=== PATIENT | female | born 1975 | race Caucasian/White ===

== ENCOUNTER 2021-11-08 20:31 | Observation (INO) | payer MEDICAID, SELFPAY ==
[2021-11-08 20:54] VITALS: BP 146/93; PULSE 105; RESP 18; TEMP 36.9; O2SAT 97; BMI 48.0
[2021-11-08 23:07] VITALS: BP 136/87; PULSE 90; RESP 18; O2SAT 100
[2021-11-09] VITALS (9 sets, daily range): BP systolic 110–142; BP diastolic 65–85; PULSE 76–90; RESP 13–18; TEMP 36.2–36.8; O2SAT 96–97; BMI 48.0
--- NOTE | 2021-11-09 00:56 | P.HP_ITS ---
Providers/Chief Complaint Chief Complaint: eye problems, head pressure History of Present Illness Fani Serna is a 46 year old female who follows up with [facility] in [place], has diagnosis of drusen around optic disc, mild blurring of disc margins superonasal right eye, left eye blurred disc margin nasal no previous history of glaucoma or cataract, presented to the hospital for worsening of headache. Patient is stating that about 10 days ago she follow-up with her client services specialist as regular follow-up appointment for her optic disc drusen, at that time she was recommended MRI head with and without contrast to rule out intracranial hypertension for her persistent headache. She went to the [facility] emergency department where work-up was done however she had to leave the emergency department because of emergency in the family, MRI could not be completed. Today she is returning to the hospital stating that she wants to get her MRI done, she is complaining of headache 5/10, she describes her headache as achy in nature, this has been going on for a few months, her headache gets worse with straining and coughing, gets better after sleep. She has been on estrogen for about 15 years because of hormonal imbalance after hysterectomy and oophorectom y. She has noticed hearing deficit, burning sensation in her ears, associated with her headache. Today when she was trying to read on her phone she started noticing flickering of light around the left lateral upper quadrant. She is denying nausea, vomiting, asymmetrical pupils, paresthesias or numbness of her extremities. Of note, patient follows up with [facility] She is being admitted for MRI and then lumbar puncture if MRI is negative. Review of Systems Const: Denies: fever(s) or chills Eyes: Reports: change in vision and blurry vision ENMT: Denies: throat pain Card: Denies: chest pain Resp: Denies: dyspnea GI: Denies: abdominal pain : Denies: flank pain Musc: Denies: neck pain Skin/Breast: Reports: rash and lesions Neuro: Denies: headache(s) Psych: Reports: anxiety and depression Goldy/Lymph: Denies: easy bruising All/Imm: Denies: urticaria Medications/Allergies Allergies Allergy/AdvReac Type Severity Reaction Status Date / Time Penicillins Allergy ALGY-Anaphy Verified 11/08/21 23:09 laxis PFSH Acute PFSH: Medical History Cervical intraepithelial neoplasia (DANNY) GERD (gastroesophageal reflux disease) Denisha's thyroiditis Optic disc drusen Psoriasis Rosacea Sciatica Smoker Surgical History History of hysterectomy with oophorectomy Family History Other Diabetes Hypertension Social History Smoking and tobacco status: current every day smoker cigarettes Number of cigarettes per day: >20 Alcohol intake: never Substance/Drug Use: never Housing: House Vitals/I&O/Wt Last Vital Signs Temp 98.5 F 11/08/21 20:54 Pulse 90 11/08/21 23:07 Resp 18 11/08/21 23:07 BP 136/87 11/08/21 23:07 Pulse Ox 100 11/08/21 23:07 Weight last 48 hrs Weight 127.006 kg Physical Exam Narrative: Very pleasant cooperative female Morbidly obese Sitting without any discomfort in her bed S1, S2 No audible stridor or wheezing No active flare of rosacea or psoriasis Abdomen soft distended visceral obesity EOMI, PERRLA Nonfocal neuro exam No focal deficits Not in any active distress A&P Assessment and plan (1) Blurry vision, left eye: Status: Acute (2) Headache: Status: Acute Plan Headache with blurry vision Red flags such as worsening of headache with straining and cough would necessita te MRI brain has History of optic disc edema Diagnosis of cataract or glaucoma Concern for benign intracranial hypertension Will do MRI with and without contrast And if MRI is negative would recommend fluoroscopic lumbar puncture Patient is claustrophobic She is asking for benzodiazepines before her MRI Will do CT scan for now she has no neurological symptoms, pupils are not asymmetrical, no active nausea, vomiting My concern is related to use of estrogen which can cause weight gain, ventricular hypertension, she is also complaining of intermittent hearing deficit, tinnitus, I will also keep M?ni?re's disease in the differentials She might benefit from discontinuation of estrogen, use of acetazolamide if benign IC hypertension is diagnosed Patient was counseled to revisit with her primary care physician regarding long- term use of estrogen Her MRI results can be faxed to [phone], academic support specialist [facility] Outside records: Reviewed, records in the chart Patient takes clindamycin for her rosacea which I would hold for now Full code DVT prophylaxis SCDs She might be able to go home tomorrow after LP if symptoms resolve Discontinued celecoxib which is her home regimen for arthritis because of side effect of this medication I would not recommend continuing celecoxib Patient is an active smoker smokes 1/2 pack/day, nicotine patch Dr. Pelayo is available if needed Attestations Medical Necessity Statement*: Anticipating less than 2 midnights in the hospital will need MRI to rule out intracranial benign hypertension she will also need lumbar puncture Time Spent in Patient Care: 40mins Coding Level of Care Code Acute Maintenance Operator for Aamir Cristina Diagnoses Blurry vision, left eye H53.8 Headache R51.9
--- NOTE | 2021-11-09 01:01 | CTR_ITS ---
PROCEDURE INFORMATION: Exam: CT Head Without Contrast Exam date and time: 11/09/2021 1:27 AM Age: 46 years old Clinical indication: Pain; Visual disturbance; Headache; Additional info: Headache, vision changes TECHNIQUE: Imaging protocol: Computed tomography of the head without contrast. Radiation optimization: All CT scans at this facility use at least one of these dose optimization techniques: automated exposure control; mA and/or kV adjustment per patient size (includes targeted exams where dose is matched to clinical indication); or iterative reconstruction. COMPARISON: No relevant prior studies available. RADIATION DOSE METRICS: Total DLP (mGy-cm): 376.81 FINDINGS: Brain: Normal. No hemorrhage. Unremarkable white matter. No mass effect. Cerebral ventricles: No ventriculomegaly. Paranasal sinuses: Visualized sinuses are unremarkable. No fluid levels. Mastoid air cells: Visualized mastoid air cells are well aerated. Bones/joints: Unremarkable. No acute fracture. Soft tissues: Unremarkable. CT/CT head wo con* [id number] IMPRESSION: No acute intracranial abnormality.
--- NOTE | 2021-11-09 01:03 | ECG_ITS ---
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 Measurements Intervals [place] Rate: 81 P: 49 TX: 181 QRS: -35 QRSD: 133 T: 55 QT: 434 QTc: 505 Interpretive Statements SINUS RHYTHM LEFT AXIS DEVIATION [QRS AXIS < -30] INTRAVENTRICULAR CONDUCTION DELAY [130+ ms QRS DURATION] ANTEROSEPTAL MYOCARDIAL INFARCTION , OF INDETERMINATE AGE [40+ ms Q WAVE IN V1-V4] No previous ECG available for comparison Electronically Signed On 11-09-2021 22:09:15 CDT by Lee Medrano M.D. [id number]
[2021-11-09 01:48] LABS: Basophils # 0.1 10^3/uL (0.0-0.1); Basophils % 0.5 %; Eosinophils # 0.2 10^3/uL (0.0-0.8); Eosinophils % 1.6 %; Hematocrit 41.9 % (37.0-47.0); Hemoglobin 13.7 g/dL (11.5-15.3); Lymphocytes # 3.1 10^3/uL (0.8-4.8); Lymphocytes % 29.7 %; Mean Corpuscular HGB Conc 32.7 g/dL (30.0-36.0); Mean Corpuscular Volume 91.7 fl (81-99); Mean Platelet Volume 9.7 fL (7.4-10.4); Monocytes # 0.9 10^3/uL (0.2-0.9); Monocytes % 8.6 %; Neutrophils # 6.22 10^3/uL (1.8-7.7); Neutrophils % 59.3 %; Nucleated Red Blood Cells % 0 %; Platelet Count 311 10^3/cmm (130-400); Red Blood Count 4.57 10^6/uL (4.1-5.3); Red Cell Distribution Width 13.1 % (12.1-15.1); White Blood Count 10.5 10^3/uL (4.0-10.0)
[2021-11-09 02:13] LABS: Alanine Aminotransferase 19 U/L (0-33); Albumin Level 4.4 g/dL (3.5-5.2); Alkaline Phosphatase 80 IU/L (35-105); Anion Gap 16.2 (5-19); Aspartate Amino Transferase 22 U/L (0-32); Blood Urea Nitrogen 27 mg/dL (6-20); Calcium 8.8 mg/dL (8.5-10.5); Carbon Dioxide 25 mmol/L (22-29); Chloride 101 mmol/L (98-107); Globulin 2.7 g/dL (1.3-4.6); Glomerular Filtration Rate 107.2 mL/min (90-130); Glucose 103 mg/dL (65-115); Magnesium 2.1 mg/dL (1.7-2.3); Osmolality Calculated 291 mOsm/kg (285-295); Potassium 4.2 mmol/L (3.5-5.1); Sodium 138 mmol/L (136-145); Total Bilirubin 0.2 mg/dL (0.15-1.2); Total Protein 7.1 g/dL (6.6-8.7)
[2021-11-09 02:17] LABS: Partial Thromboplastin Time 26.6 SECONDS (23.9-36.7)
[2021-11-09 02:30] LABS: NT Pro B Type Natriuretic Pept 105 pg/mL (0-125)
--- NOTE | 2021-11-09 02:54 | W.ED.EYEPROB ---
HPI - Eye Problem General: Chief complaint: Eye Problems Stated complaint: eye problems, head pressure Time Seen by Provider: 11/08/21 23:01 Source: patient History of Present Illness: 46-year-old female complaining of vision changes and headaches for the past couple of weeks. She was seen at a hospital in [place] on 10/29. She was admitted at that point. She was sent by her dictating machine mechanic, who noted optic disc swelling on her exam. The plan was to MRI her brain and orbits, and if it was normal, to do a lumbar puncture for opening pressure and attempted diagnosis intracranial hypertension. She had a family emergency at that point, and had to come back to [place]. She presents with the same symptoms, headaches, visual changes, some dizziness, and some nausea. Her family notes that she has been a bit more forgetful, has trouble concentrating as well. Onset (ago): day(s) Onset description: gradual Duration: constant Location: both eyes Eye Symptoms: pain and photophobia Place: home Mechanism: none Context: sore throat and history of glaucoma Associated symptoms: Reports headache(s) and nausea; Denies cough, fever(s), neck pain, numbness, rhinorrhea, short of breath, vomiting or weakness Treatments Prior to Arrival: other Review of Systems Const: Denies: fever(s) Eyes: Reports: change in vision, photophobia, eye discomfort and floaters; Denies: eye discharge or eye redness ENMT: Denies: throat pain Card: Denies: chest pain or palpitations GI: Reports: nausea; Denies: vomiting Musc: Denies: neck pain Neuro: Reports: headache(s), dizziness and confusion; Denies: numbness in extremities or weakness in extremities PFSH ED PFSH: Medical History Cervical intraepithelial neoplasia (DANNY) GERD (gastroesophageal reflux disease) Denisha's thyroiditis Optic disc drusen Psoriasis Rosacea Sciatica Smoker Surgical History History of hysterectomy with oophorectomy Family History Other Diabetes Hypertension Social History Smoking and tobacco status: current every day smoker cigarettes Number of cigarettes per day: >20 Alcohol intake: never Substance/Drug Use: never Housing: House Physical Exam Const: COMMON NORMALS: alert GENERAL APPEARANCE: cooperative HENMT: COMMON NORMALS: normocephalic, atraumatic and Normal external nose present HEAD & SCALP: normocephalic and atraumatic FACE & SINUS: normal facial exam and face symmetric NOSE: Normal external nose present and Normal nares present MOUTH: Normal oral and palatal mucosa present Eye: COMMON NORMALS: Equal, round and reactive pupils present and EOMs intact bilaterally PUPIL: Yes Equal, round and reactive pupils present Chest: COMMONS NORMALS: normal inspection of the chest Resp: COMMON NORMALS: normal respiratory effort, No use of accessory muscles and clear to auscultation bilaterally AUSCULTATION: clear to auscultation bilaterally Cardio: COMMON NORMALS: regular rate and regular rhythm RATE: regular rate RHYTHM: regular rhythm GI: COMMON NORMALS: Normal to inspection, nondistended, normoactive bowel sounds present Neuro: [place] COMA SCALE: document GCS findings [place] coma scale eye opening: Spontaneous [place] coma scale verbal response: Orientated [place] coma scale motor response: Obey commands [place] coma scale total score: 15 SENSORIUM/ORIENTATION: Yes alert COORDINATION/BALANCE: [id number] test normal SPEECH: speech normal COORDINATION: [id number]-[id number] test normal Psych: COMMON NORMALS: mental status grossly normal and cooperative Course Consultations: Consultation #1: JAMIN Vital Signs: Vital signs: Vital Signs Temperature 98.5 F 11/08/21 20:54 Pulse Rate 90 11/09/21 02:52 Respiratory Rate 18 11/09/21 02:52 Blood Pressure 142/65 11/09/21 02:52 Pulse Oximetry 96 11/09/21 02:52 MDM - Eye Problem Medical Decision Making Spoke with ophthalmology on-call. The question as to whether to continue this lady's work-up as an inpatient or an outpatient. She will be observed. MRI later in the morning. CT is negative here. If MRI is negative, she may proceed with guided lumbar puncture. CBC is essentially normal. BUN is slightly elevated otherwise BMP is normal. Lab Data : 11/09/21 01:40 11/09/21 01:[address] 11/09/21 01:01 IMPRESSION: No acute intracranial abnormality. Discharge Plan Discharge Patient Disposition: Admitted As Inpatient Admit Provider: Saurabh Elder Clinical Impression: Headache Condition: Stable Coding Level of Care Code ED Odd Job Laborer for Aamir Cristina
--- NOTE | 2021-11-09 03:07 | PC.NURSE ---
ADMIT NOTE Pt received to floor from ER via wheelchair. Alert and oriented. c/o headache at 4/10 on admission. Says feels like she has pressure to top of her head. Has been having headaches worsening for about a week now. Says gets better then comes right back. Also has c/o blurry vision as well as a whooshing sound in her ears, light sensitivity & a blur spot that floats across her left eye Has a history of optic disc drusen. Was seen recently in [place] and [place] and was told she had had a hemorrhage in her right eye that was no longer bleeding and was to have a MRI but family emergency caused it to not get done. Came to the ER tonight to be seen for symptoms and get MRI done. Denies any nausea or dizziness. RN completing admission assessment
[2021-11-09] MEDS: nicotine 21 mg Patch 1 PATCH TRANSDERMA ×2 (03:35→11:08)
[2021-11-09] MEDS: gabapentin 300 mg Capsule PO ×2 (03:35→19:15)
[2021-11-09 05:08] LABS: Estmated Average Glucose 123; Hemoglobin A1C 5.9 % (4.0-6.0)
[2021-11-09 05:15] LABS: Basophils # 0.1 10^3/uL (0.0-0.1); Basophils % 0.6 %; Eosinophils # 0.2 10^3/uL (0.0-0.8); Eosinophils % 2.4 %; Hematocrit 40.4 % (37.0-47.0); Hemoglobin 12.9 g/dL (11.5-15.3); Lymphocytes % 33.7 %; Mean Corpuscular HGB Conc 31.9 g/dL (30.0-36.0); Mean Corpuscular Hemoglobin 30.4 pg (28.0-34.0); Mean Corpuscular Volume 95.3 fl (81-99); Mean Platelet Volume 9.8 fL (7.4-10.4); Monocytes # 0.9 10^3/uL (0.2-0.9); Monocytes % 10.3 %; Neutrophils # 4.71 10^3/uL (1.8-7.7); Neutrophils % 52.7 %; Nucleated Red Blood Cells % 0 %; Platelet Count 276 10^3/cmm (130-400); Red Blood Count 4.24 10^6/uL (4.1-5.3); White Blood Count 8.9 10^3/uL (4.0-10.0)
[2021-11-09 05:42] LABS: Thyroid Stimulating Hormone 2.75 uIU/mL (0.27-4.20)
[2021-11-09 06:28] LABS: Anion Gap 16.9 (5-19); Blood Urea Nitrogen 26 mg/dL (6-20); C Reactive Protein 4.7 mg/L (0.0-4.9); Calcium 8.1 mg/dL (8.5-10.5); Carbon Dioxide 21 mmol/L (22-29); Chloride 103 mmol/L (98-107); Glomerular Filtration Rate 59.4 mL/min (90-130); Glucose 110 mg/dL (65-115); Osmolality Calculated 289 mOsm/kg (285-295); Potassium 3.9 mmol/L (3.5-5.1); Sodium 137 mmol/L (136-145)
[2021-11-09 06:31] LABS: Creatinine Clr Calc Pharmacy 91.8104
[2021-11-09] MEDS: pantoprazole DR 40 mg Tablet PO (07:58)
--- NOTE | 2021-11-09 11:57 | PC.CHAP ---
Pastoral Care Encounter/Spiritual Assessment Type of Contact [] Declined project coordinator rn visit [] Patient/Family/Request visit [] Outpatient visit [] Follow-up visit [] Physician referral [] Code/Alert [x] Routine visit [] Staff referral [] Actively dying [x] Patient sleeping [] Family support [] [] Out of room [] Palliative care [] [] Receiving care in room [] Pre-surgical visit [] Trauma [] Long length of stay [] ICU visit [] Other: Relational/Emotional Strength [] Patient feels connected with others/family/visitors/staff [] Distress [] Loneliness/isolation [] Abandonment Spirituality of Patient [] Person of Elizabeth [] Attends Islam of their Elizabeth [] Believes in Prayer [] Reads Bible or Uatsdin materials [] There are Spiritual issues to be addressed Senior Regulatory Affairs Specialist Interventions [] Prayer [] Active listening [] Non-anxious presence [] Spiritual/emotional support [] Crisis/trauma care [] Spiritual counseling [] Bereavement support [] Provided bereavement packet [] Provided Bible/devotional materials [] Provided toy/stuffed animal, coloring book to patient or family member [] Provided Communion [] Anointing/[place] [] Salvation [] Completed spiritual assessment [] Other: Impact on Illness or Injury [] Angry [] Fearful [] Anxious [] Often cries [] Exhaustion [] Unable to work [] Unable to attend holiness [] Unable to walk/stand [] Unable to read [] Unable to drive [] Unable to eat/drink [] Unable to sleep [] Unable to be with family [] Patient intubated [] Other: Summary Time spent with patient
[2021-11-09 16:44] LABS: Add Urine Culture? Yes; Add Urine Microscopic? YES; Bacteria Urine 4+ /hpf; Bilirubin Urine Neg (Negative); Blood Urine Neg (Negative); Glucose Urine UA Norm (Normal); Ketones Urine Negative (Negative); Leukocyte Esterase Urine Trace (Negative); Nitrate Urine Negative (Negative); Protein Urine Neg (Negative); RBC Urine 0-4 /hpf (0-2); Specific Gravity, Urine 1.025 (1.005-1.030); Squamous Epithelial Cell Urine 0-4 /hpf (0-5); Urine Appearance Clear (CLEAR); Urine Color Yellow (Yellow); Urobilinogen Urine 1 mg/dL (Negative); pH Urine 7 (5-7)
--- NOTE | 2021-11-09 19:21 | PC.NURSE ---
Addendum entered by Vannessa Taylor RN 11/09/21 19:53: Physician states patient is on highest dose of patch and unable to increase frequency. Jennifer zuniga ordered. Original Note: Patient asking to increase frequency of nicotine patch. Attempt to contact Dr. White with no answer. Voicemail left to return call.
--- NOTE | 2021-11-09 20:38 | P.PN_ITS ---
Subjective Subjective: Feels some pressure/headache. Denies any additional vision changes. No numbness or weakness. No nausea or vomiting. Vitals/I&O/Wt Last Vital Signs Temp 97.9 F 11/09/21 16:00 Pulse 84 11/09/21 16:00 Resp 13 11/09/21 16:00 BP 136/85 11/09/21 16:00 Pulse Ox 97 11/09/21 16:00 11/09/21 11/09/21 11/09/21 06:59 14:59 22:59 Intake Total 120 / 120 600 / 600 Balance 120 / 120 600 / 600 Weight last 48 hrs Weight 127.006 kg Weight 127.006 kg Physical Exam Const: COMMON NORMALS: alert GENERAL APPEARANCE: cooperative NUTRITIONAL APPEARANCE: obese ORIENTATION/CONSCIOUSNESS: Yes awake HENMT: COMMON NORMALS: normocephalic, EAC's normal, Normal external nose present and moist oral mucous membranes HEAD & SCALP: normocephalic NOSE: Normal external nose present EXTERNAL AUDITORY CANAL: EAC's normal Neck/C-Spine: COMMON NORMALS: no meningeal signs Chest: CHEST: Yes Symmetrical chest wall rise Resp: COMMON NORMALS: clear to auscultation bilaterally AUSCULTATION: clear to auscultation bilaterally Cardio: COMMON NORMALS: regular rate, regular rhythm and No murmurs present (Cardio) RATE: regular rate RHYTHM: regular rhythm GI: COMMON NORMALS: Normal to inspection, nondistended, normoactive bowel sounds present, Soft to palpation and non-tender PALPATION: Yes Soft to palpation Extremity: COMMON NORMALS: no pedal edema Neuro: COMMON NORMALS: moves all extremities SENSORIUM/ORIENTATION: Yes alert MENINGEAL SIGNS: Yes no meningeal signs SPEECH: speech normal MOTOR EXAM: no tremor noted OTHER: Awake, alert, following commands. No issues with tracking. No dysmetria or ataxia. Psych: COMMON NORMALS: mental status grossly normal Skin: COMMON NORMALS: no wounds RASHES: no rashes Data : 11/09/21 05:00 11/09/21 05:00 A&P Assessment and plan (1) Headache: Pending assessment with MRI, plus possible lumbar puncture. Consider discontinuation of estrogen. Discussed with her discontinuation of celecoxib. Status: Acute (2) Blurry vision, left eye: No vision changes today. Some persistent headache. Status: Acute Plan She takes medications for psoriasis, although does not follow with specialist. She suspects she has psoriatic arthritis. Discussed with her arrange with her primary provider follow-up with rheumatology or dermatology. She denies chronic oral steroid use. Does use topical steroid fairly often. Denies any retinoid use. Patient is an active smoker smokes 1/2 pack/day, nicotine patch Attestations Medical Necessity Statement*: Continue admission for assessment and management of possible secondary or [place] intracranial hypertension. Coding Level of Care Code Acute Roll Slicing Machine Tender for Aamir Cristina Diagnoses Blurry vision, left eye H53.8 Headache R51.9
[2021-11-09] MEDS: nicotine 4 mg lozenge MUCOUS MEM (20:39)
[2021-11-10] VITALS (7 sets, daily range): BP systolic 118–135; BP diastolic 64–79; PULSE 67–100; RESP 16–18; TEMP 36.3–36.6; O2SAT 95–97
--- NOTE | 2021-11-10 03:00 | FL_ITS ---
WS: [id number] LUMBAR PUNCTURE CLINICAL INFORMATION: AFTER MRI RESULTS COMPARISON: None. TECHNIQUE: Informed consent: The procedure and its potential risk and complications were discussed with the ara ent. Verbal and written consent was obtained. Timeout: A timeout was performed to confirm correct patient, procedure, and site. Patient was prepped and draped in the usual sterile fashion. Lidocaine 1% was used for local anesthes ia. Utilizing fluoroscopic guidance, a 3.5 inch 22-gauge spinal needle was advanced into the subarach noid space at L3-L4 via LEFT oblique sublaminar approach. Free flow of CSF was obtained. This was blo od tinged initially but cleared with additional drainage. Opening pressure 33 cm H2o. 12 cc of CSF wa s collected and sent the lab for further analysis. FLUOROSCOPIC TIME: 0min 57.0sec # of spot films: 0 FL/FL guided lumbarpunc dx* [id number] IMPRESSION: 1. Fluoroscopically guided lumbar puncture. No immediate complications 2. Opening pressure 33 cm H2o
--- NOTE | 2021-11-10 06:30 | MR_ITS ---
WS: [id number] MRI HEAD WITHOUT AND WITH CONTRAST WITH ATTENTION TO THE ORBITS. TECHNIQUE: Sagittal T1, T2 axial, T2 axial FLAIR, axial susceptibility weighted imaging, axial diffus ion weighted images, and coronal T2 images were obtained. Pre and post-T1 axial and post T1 coronal i mages. ADC and FSPGR images. High-resolution CLINICAL INFORMATION: Headache, blurry vision, benign intracranial hypertension COMPARISON: CT November 09, 2021 FINDINGS: Some images degraded by motion artifact. No evidence of restricted diffusion to suggest acute ischemia. Ventricular system and basal cisterns are patent. Normal mcrae-white differentiation. Minimal periventricular white matter changes no signif icant parenchymal volume loss. Normal posterior fossa. Normal vascular flow voids at the skull base. No extra-axial fluid collections. Mild mucosal thickening in the paranasal sinuses. No hemosiderin on susceptibly weighted images. Normal optic chiasm.Temporal lobes and hippocampal formations are normal in appearance. Normal cavern ous sinuses and Meckel's cave. Visualized rectus muscles appear normal. No abnormal intracranial enhancement. Normal dural venous si nuses. Partially empty sella with flattening of the pituitary. Somewhat pinched lateral ventricles and front al horns best appreciated on the coronal imaging. Above findings are nonspecific but can be seen with intracranial hypertension in the appropriate clinical setting. Mild prominence of the CSF along the distal optic nerve sheaths MR/MR head orbits wo/w* [id number] IMPRESSION: 1. No evidence of restricted diffusion to suggest acute ischemia. 2. Partially empty sella and pinched appearance lateral ventricles can be seen with idiopathic intracranial hypertension in the appropriate clinical setting. 3. Mild prominence of the CSF along the distal optic nerve sheaths can also be seen with IIH in the appropriate clinical setting. Orbital images are degraded by motion artifact.Recommend correlation for papilledema. 4. Minimal periventricular white matter changes. No significant parenchymal vo lume loss. 5. No hemosiderin on susceptibly weighted images. 6. Normal optic chiasm. 7. No abnormal gadolinium enhancement. Notified Saurabh Elder MD at 11/10/2021 10:35 AM.
[2021-11-10] MEDS: LORazepam 2 mg/mL INJ 1 mL 0.5 MG IVP ×2 (07:16→10:59)
--- NOTE | 2021-11-10 07:16 | PC.SOCIAL ---
Notified Dr Lynn that LP will be delayed until 11am this am pending the MRI is complete at that time. He verbalized understanding and is hopeful the MRI will be done at 8am this morning.
[2021-11-10] MEDS: pantoprazole DR 40 mg Tablet PO (10:06)
[2021-11-10] MEDS: nicotine 21 mg Patch 1 PATCH TRANSDERMA (10:07)
[2021-11-10] MEDS: loratadine 10 mg Tablet PO (10:07)
[2021-11-10] MEDS: fluoxetine 20 mg Capsule PO ×2 (10:07→13:12)
--- NOTE | 2021-11-10 10:44 | PC.NURSE ---
Received verbal order from Dr. Gardner that patient can have 0.5 mg of Ativan before lumbar puncture. Order put in by nurse.
[2021-11-10 14:03] LABS: CSF Mononuclear # 0.001 10^3/uL (50-90); Mononuclear WBC CSF % 50 % (50-90); Polynuclear Cells ,CSF # 0.001 10^3/uL (0-10); Polynuclear WBC CSF % 50 % (0-10); Red Blood Cell CSF 0 10^3/uL (0-0); White Blood Cell CSF 2 /uL (0-5)
[2021-11-10 14:16] LABS: Appearance CSF CLEAR (CLEAR); Color CSF COLORLESS (COLORLESS); Pathology Referral Yes
[2021-11-10 14:25] LABS: Total Protein CSF 31 mg/dL (15-45)
--- NOTE | 2021-11-10 15:29 | PM.DCS ---
Discharge Providers Date of Admission: 11/09/21 01:27 Date of Discharge: November 10, 2021 Attending Provider at Admission: Saurabh Elder MD Attending Provider at Discharge: John Lynn Diagnoses at Discharge Discharge Diagnosis (1) Headache: Status: Acute (2) Blurry vision, left eye: Status: Acute Reason for Visit Reason for Visit: eye problems, head pressure Hospital Course Hospital Course Pleasant 46-year-old lady with history of psoriasis, topical steroids, Denisha thyroiditis, on hormone therapy, suspects also may have psoriatic arthritis, on chronic Celebrex, with morbid obesity, difficulties losing weight, current smoker, other comorbidities was observed in the hospital after presenting with vision changes, some blurring of the vision in the left eye, as per H&P reported right eye superior. Nasal quadrant, as well as left eye. Nasal blurring of the vision. She reports on the she was evaluated by an pulp beater who had found optic disc edema and reported also old hemorrhage in the right eye from what she tells me and with persistent headache her symptoms raised concern for possible antibiotic intracranial hypertension. On presentation here head CT was obtained which was unremarkable. She underwent additional assessment by MRI brain/orbits with the following findings IMPRESSION: 1. No evidence of restricted diffusion to suggest acute ischemia. 2. Partially empty sella and pinched appearance lateral ventricles can be seen with idiopathic intracranial hypertension in the appropriate clinical setting. 3. Mild prominence of the CSF along the distal optic nerve sheaths can also be seen with IIH in the appropriate clinical setting. Orbital images are degraded by motion artifact.Recommend correlation for papilledema. 4. Minimal periventricular white matter changes. No significant parenchymal volume loss. 5. No hemosiderin on susceptibly weighted images. 6. Normal optic chiasm. 7. No abnormal gadolinium enhancement. She additionally underwent lumbar puncture with opening pressure found to be 33 mmHg. As per discussion with her, with vision changes, with diagnosis of ID pathic intracranial hypertension we have contacted also ophthalmology and she is asked to come for appointment within the next 2 weeks for closer evaluation and consideration of whether intervention may be needed. She understands that the condition potentially may risk her losing vision within 4 weeks and so intends to make sure to follow-up. She will also be speaking again with her primary doctor and flight attendant inflight services with regards to repeat attempts to try to lose weight. She has had much difficulty with this in the past she feels due to Denisha thyroiditis but is also being referred to see a grounds maintenance supervisor currently. Please continue to encourage necessary to quit smoking. Incidentally noted 5-10 WBC in urine, trace LE, 0-4 squamous Pelo cells, 4+ bacteria, however, did not have any urinary symptoms to indicate UTI. She is asked to stop Celebrex, not take it on a chronic basis due to associated adverse effect risks. Physical Exam Const: COMMON NORMALS: alert GENERAL APPEARANCE: cooperative NUTRITIONAL APPEARANCE: obese ORIENTATION/CONSCIOUSNESS: Yes awake HENMT: COMMON NORMALS: normocephalic, EAC's normal, Normal external nose present and moist oral mucous membranes HEAD & SCALP: normocephalic NOSE: Normal external nose present EXTERNAL AUDITORY CANAL: EAC's normal Neck/C-Spine: COMMON NORMALS: no meningeal signs Chest: CHEST: Yes Symmetrical chest wall rise Resp: COMMON NORMALS: clear to auscultation bilaterally AUSCULTATION: clear to auscultation bilaterally Cardio: COMMON NORMALS: regular rate, regular rhythm and No murmurs present (Cardio) RATE: regular rate RHYTHM: regular rhythm GI: COMMON NORMALS: Normal to inspection, nondistended, normoactive bowel sounds present, Soft to palpation and non-tender PALPATION: Yes Soft to palpation Extremity: COMMON NORMALS: no pedal edema Neuro: COMMON NORMALS: moves all extremities SENSORIUM/ORIENTATION: Yes alert MENINGEAL SIGNS: Yes no meningeal signs SPEECH: speech normal MOTOR EXAM: no tremor noted OTHER: Awake, alert, following commands. No issues with tracking. No dysmetria or ataxia. Visual gilliam full on basic testing to confrontation. Psych: COMMON NORMALS: mental status grossly normal Skin: COMMON NORMALS: no wounds RASHES: no rashes Discharge Data Studies Completed and Pending Completed Studies During Hospitalization Category Date Time Status CT head wo con* [id number] Urgent Cat Scan 11/09/21 01:01 Completed FL guided lumbarpunc dx* [id number] Routine Exams 11/10/21 03:00 Completed MR head orbits wo/w* [id number] Routine MRI 11/10/21 06:30 Completed Pending at discharge Category Date Time Status Urine Culture Stat Lab 11/09/21 16:06 Received Radiology Impressions Head CT 11/09/21 01:01 IMPRESSION: No acute intracranial abnormality. Lumbar Puncture Fluoroscopy 11/10/21 03:00 IMPRESSION: 1. Fluoroscopically guided lumbar puncture. No immediate complications 2. Opening pressure 33 cm H2o Brain/Orbits MRI 11/10/21 06:30 IMPRESSION: 1. No evidence of restricted diffusion to suggest acute ischemia. 2. Partially empty sella and pinched appearance lateral ventricles can be seen with idiopathic intracranial hypertension in the appropriate clinical setting. 3. Mild prominence of the CSF along the distal optic nerve sheaths can also be seen with IIH in the appropriate clinical setting. Orbital images are degraded by motion artifact.Recommend correlation for papilledema. 4. Minimal periventricular white matter changes. No significant parenchymal volume loss. 5. No hemosiderin on susceptibly weighted images. 6. Normal optic chiasm. 7. No abnormal gadolinium enhancement. Notified Saurabh Elder MD at 11/10/2021 10:35 AM. Laboratory Results WBC 8.9 10^3/uL (4.0-10.0) 11/09/21 05:00 RBC 4.24 10^6/uL (4.1-5.3) 11/09/21 05:00 Hgb 12.9 g/dL (11.5-15.3) 11/09/21 05:00 Hct 40.4 % (37.0-47.0) 11/09/21 05:00 MCV 95.3 fl (81-99) 11/09/21 05:00 MCH 30.4 pg (28.0-34.0) 11/09/21 05:00 MCHC 31.9 g/dL (30.0-36.0) 11/09/21 05:00 RDW 13.0 % (12.1-15.1) 11/09/21 05:00 Plt Count 276 10^3/cmm (130-400) 11/09/21 05:00 MPV 9.8 fL (7.4-10.4) 11/09/21 05:00 Neut % (Auto) 52.7 % 11/09/21 05:00 Lymph % (Auto) 33.7 % 11/09/21 05:00 [place] % (Auto) 10.3 % 11/09/21 05:00 Eos % (Auto) 2.4 % 11/09/21 05:00 Baso % (Auto) 0.6 % 11/09/21 05:00 Neut # (Auto) 4.71 10^3/uL (1.8-7.7) 11/09/21 05:00 Lymph # (Auto) 3.0 10^3/uL (0.8-4.8) 11/09/21 05:00 [place] # (Auto) 0.9 10^3/uL (0.2-0.9) 11/09/21 05:00 Eos # (Auto) 0.2 10^3/uL (0.0-0.8) 11/09/21 05:00 Baso # (Auto) 0.1 10^3/uL (0.0-0.1) 11/09/21 05:00 Nucleated RBC % (auto) 0 % 11/09/21 05:00 Nucleated RBCs # 0.0 /100WBC 11/09/21 05:00 PT 12.50 SECONDS (12.1-14.9) 11/09/21 01:40 INR 0.90 (0.8-1.2) 11/09/21 01:40 APTT 26.6 SECONDS (23.9-36.7) 11/09/21 01:40 Sodium 137 mmol/L (136-145) 11/09/21 05:00 Potassium 3.9 mmol/L (3.5-5.1) 11/09/21 05:00 Chloride 103 mmol/L (98-107) 11/09/21 05:00 Carbon Dioxide 21 mmol/L (22-29) L 11/09/21 05:00 Anion Gap 16.9 (5-19) 11/09/21 05:00 BUN 26 mg/dL (6-20) H 11/09/21 05:00 Creatinine 1.0 mg/dL (0.5-0.9) H 11/09/21 05:00 GFR Calculation 59.4 mL/min (90-130) L 11/09/21 05:00 Glucose 110 mg/dL (65-115) 11/09/21 05:00 Estimat Average Glucose 123 11/09/21 01:40 Hemoglobin A1c 5.9 % (4.0-6.0) 11/09/21 01:40 Calculated Osmolality 289 mOsm/kg (285-295) 11/09/21 05:00 Calcium 8.1 mg/dL (8.5-10.5) L 11/09/21 05:00 Magnesium 2.1 mg/dL (1.7-2.3) 11/09/21 01:40 Total Bilirubin 0.2 mg/dL (0.15-1.2) 11/09/21 01:40 AST 22 U/L (0-32) 11/09/21 01:40 ALT 19 U/L (0-33) 11/09/21 01:40 Alkaline Phosphatase 80 IU/L (35-105) 11/09/21 01:40 C-Reactive Protein 4.7 mg/L (0.0-4.9) 11/09/21 05:00 NT-Pro-B Natriuret Pep 105 pg/mL (0-125) 11/09/21 01:40 Total Protein 7.1 g/dL (6.6-8.7) 11/09/21 01:40 Albumin 4.4 g/dL (3.5-5.2) 11/09/21 01:40 Globulin 2.7 g/dL (1.3-4.6) 11/09/21 01:40 TSH 2.75 uIU/mL (0.27-4.20) 11/09/21 05:00 Urine Color Yellow (Yellow) 11/09/21 16:06 Urine Appearance Clear (CLEAR) 11/09/21 16:06 Urine pH 7 (5-7) 11/09/21 16:06 Ur Specific [place] 1.025 (1.005-1.030) 11/09/21 16:06 Urine Protein Neg (Negative) 11/09/21 16:06 Urine Glucose (UA) Norm (Normal) 11/09/21 16:06 Urine Ketones Negative (Negative) 11/09/21 16:06 Urine Blood Neg (Negative) 11/09/21 16:06 Urine Nitrate Negative (Negative) 11/09/21 16:06 Urine Bilirubin Neg (Negative) 11/09/21 16:06 Urine Urobilinogen 1 mg/dL (Negative) H 11/09/21 16:06 Ur Leukocyte Esterase Trace (Negative) H 11/09/21 16:06 Urine RBC 0-4 /hpf (0-2) H 11/09/21 16:06 Urine WBC 5-10 /hpf (0-5) H 11/09/21 16:06 Ur Squamous Epith Cells 0-4 /hpf (0-5) H 11/09/21 16:06 Amorphous Sediment Not Reportable 11/09/21 16:06 Urine Bacteria 4+ /hpf (NONE) H 11/09/21 16:06 CSF Appearance Clear (CLEAR) 11/10/21 11:20 CSF Color Colorless (COLORLESS) 11/10/21 11:20 CSF WBC 2 /uL (0-5) 11/10/21 11:20 CSF RBC 0 10^3/uL (0-0) 11/10/21 11:20 CSF Mononuclear # Auto 0.001 10^3/uL (50-90) L 11/10/21 11:20 CSF Mononuclear WBCs % 50 % (50-90) 11/10/21 11:20 CSF Polynuclear WBCs # 0.001 10^3/uL (0-10) 11/10/21 11:20 CSF Polynuclear WBCs % 50 % (0-10) H 11/10/21 11:20 CSF Diff Comment Yes 11/10/21 11:20 CSF Total Protein 31 mg/dL (15-45) 11/10/21 11:20 Vitals Last Vital Signs Temp 97.7 F 11/10/21 08:00 Pulse 84 11/10/21 08:00 Resp 18 11/10/21 12:00 BP 123/79 11/10/21 08:00 Pulse Ox 97 11/10/21 08:00 Discharge Plan Discharge Patient Disposition: Home Condition: Stable Prescriptions: New nicotine 21 mg/24 hr Patch 24 Hour 1 patch transdermal DAILY Qty: 30 0RF nicotine (polacrilex) 4 mg Lozenge 4 mg mucous membrane Q4H PRN (Reason: Nicotine Cravings) Qty: 90 3RF acetazolamide 250 mg tablet 250 mg PO BID Qty: 180 0RF Continued atorvastatin 40 mg Tablet 40 mg PO QPM 0RF omeprazole 40 mg Capsule,Delayed Release(Dr/Ec) 40 mg PO DAILY 0RF fluoxetine 20 mg Tablet 20 mg PO BID 0RF Rx Instructions: administer in the morning and at noon/midday Premarin 0.625 mg/gram Cream 0.625 mg VAGINAL EVERY OTHER DAY 0RF Rx Instructions: off 5 days; repeat cycle gabapentin 300 mg Capsule 300 mg PO BEDTIME 0RF montelukast 10 mg Tablet 10 mg PO QPM 0RF loratadine 10 mg Tablet 10 mg PO DAILY 0RF Hair,Skin and Nails 5,000 mcg PO DAILY 0RF [place] 3 540 mg PO DAILY 0RF Vitamin D3 50 mcg (2,000 unit) Capsule 50 mcg PO DAILY 0RF Discontinued celecoxib 200 mg Capsule 200 mg PO BID 0RF norethindrone-ethin estradiol 0.5 mg tablet 0.5 mg PO DAILY 0RF Discharge Orders: Discharge Order (Routine); Ordered 11/10/21 Ordered By: John Lynn Referrals: Your, PCP [Other] - 4-7 days Your, flight attendant inflight services [Other] Naveen Jacobson MD [Physician] - 11/24/21 11:30 am (HAS APPOINTMENT WITH DR ROXANN JACOBSON ) Patient Instructions: Acetazolamide (By mouth), Nicotine (Into the mouth), Nicotine (Absorbed through the skin), Idiopathic Intracranial Hypertension (GEN) Activity Restrictions/Additional Instructions: Please follow-up with ophthalmology regarding diabetic intracranial hypertension. Follow-up and discuss also with your primary provider. Discussed with your primary provider and flight attendant inflight services regarding additional options for continued attempts at weight loss. You are also started on acetazolamide for this condition. Please avoid driving until cleared to do so by the eye doctor. Discontinue celecoxib due to risks associated with medicine. Please stop smoking. Discharge Attestations Time Spent in Discharge Care*: greater than 30 min Quality Metrics Clinical Quality Measures [ No reported AMI, CVA or VTE this stay] Coding Level of Care Code Acute Chg FW DC note Diagnoses Headache R51.9 Blurry vision, left eye H53.8
== END 2021-11-10 16:02 | disposition home or self-care (01) ==
LOC: ER 11-09 01:24 → MEDSURG 11-09 02:18
PROVIDERS: Admitting Provider Internal Medicine; Emergency Provider Emergency Medicine; Visit Provider Internal Medicine
DX: R51.9 Headache, unspecified (principal); H53.8 Other visual disturbances; E66.01 Morbid (severe) obesity due to excess calories; Z68.42 Body mass index [BMI] 45.0-49.9, adult; F17.210 Nicotine dependence, cigarettes, uncomplicated; K21.9 Gastro-esophageal reflux disease without esophagitis
CPT/HCPCS: 36415; 62328; 70450; 70543; 70553; 80048; 80053; 80503; 81001; 83036; 83735; 83880; 84157; 84443; 85025; 85610; 85730; 86140; 87077; 87086; 87186; 89050; 93005; 96374; 99285; A9579; G0378; J2060

== ENCOUNTER 2024-04-20 13:08 | Outpatient (CLI) | payer MEDICAID, SELFPAY ==
--- NOTE | 2024-04-20 13:11 | CT_ITS ---
WS: [id number] LDCT LUNG CANCER SCREENING HISTORY: HX OF TOBACCO USE TECHNIQUE: Axial imaging performed from the apices to 1 cm below the costophrenic angles. Coronal and sagittal reformats are submitted with axial MIP series. All CT scans at [facility] use at least one of these dose optimization techniques: automated exposure control; mA and/or kV adjustment per patient size (includes targeted exams where dose is matched to clinical indication); or iterativ e reconstruction. DLP: 119.61 mGy.cm DIvol: Mean CTDIvol: 2.70 (mGy) COMPARISON: None available. Diagnostic quality: Satisfactory Lungs: Micronodule LEFT upper lobe, image 76 series 4. No additional mass or nodule. No groundglass a ttenuation or endobronchial lesions. Heart: Normal size heart with no pericardial effusion.. Other findings: LEFT adrenal adenoma 2.6 x 1.7 cm. Normal RIGHT adrenal gland. Small hiatal hernia. H ealed rib fracture mid lateral LEFT thorax. CT/CT lung screening [id number] IMPRESSION: LUNG-RADS: 2-Benign Appearance or Behavior FOLLOW UP: 12 Month: Continue annual screening with LDCT OTHER FINDINGS (S MODIFIER): None.
== END 2024-04-20 13:09 | disposition home or self-care (01) ==
LOC: RAD 13:09
PROVIDERS: PCP Family Medicine; Visit Provider Family Medicine
DX: Z12.2 Encounter for screening for malignant neoplasm of respiratory organs (principal); Z87.81 Personal history of (healed) traumatic fracture; E66.01 Morbid (severe) obesity due to excess calories; R91.1 Solitary pulmonary nodule; D35.02 Benign neoplasm of left adrenal gland; K44.9 Diaphragmatic hernia without obstruction or gangrene; Z87.891 Personal history of nicotine dependence
CPT/HCPCS: 71271

== ENCOUNTER 2024-08-15 14:58 | Outpatient (CLI) | payer MEDICAID, SELFPAY ==
--- NOTE | 2024-08-15 15:15 | MR_ITS ---
WS: [id number] MRI BRAIN WITH AND WITHOUT CONTRAST HISTORY: G93.2 - Benign intracranial hypertension COMPARISON: 11/10/2021 TECHNIQUE: Multiplanar imaging performed through the brain with MultiHance 20 ml's IV. No acute infarcts are seen. Hatch-white matter differentiation is well preserved. Minimal periventricu lar white matter changes without volume loss. Similar to the prior study. No interval infarct. No susceptibility artifacts or prior lacunar infarcts. Reidentified is a somewhat narrowed lateral ventricles and frontal horns as seen on the prior study f rom 11/10/2021 without change or progression. No improvement. No increased CSF along the optic nerve s derian. This Slightly empty sella turcica as noted on the prior study. Visualized posterior fossa and brainstem are also normal. Postcontrast images are negative for masses or vascular malformations. Dural venous sinuses are normal. Paranasal sinuses: Well aerated with no significant disease. Mastoid air cells: Normal. Calvarium and scalp: Normal. MR/MR head wo/w con [id number] IMPRESSION: 1. No acute or remote infarct. No progression of periventricular white matter disease. 2. Slightly narrowed lateral ventricles as seen on the prior study can be seen with idiopathic intracranial hypertension. No interval change. 3. Partially empty sella is unchanged. 4. No CSF along the optic nerve sheaths. 5. No intracranial hemorrhage. 6. No mass.
--- NOTE | 2024-08-15 16:00 | MR_ITS ---
WS: [id number] MRI LUMBAR SPINE WITH AND WITHOUT CONTRAST HISTORY: M54.50 - Low back pain, unspecified COMPARISON: None available. TECHNIQUE: Sagittal and axial multisequence imaging is submitted. MultiHance 20 mL. C6-7: Central disc or osteophyte protrusion contacts the cervical cord with deformity and stenosis. S maller central disc protrusion versus osteophyte at C5-6. Small amount of edema within the anterior T 11 and T12 vertebral bodies is likely reactive from degenerative disc disease and spondylosis. L4 anterolisthesis by 3 mm. Disc spaces and vertebral body heights are well-preserved. Conus terminates normally at L1-2 disc level. L1-L2: Mild ligamentum flavum and facet arthritis. There is mild encroachment and narrowing of the RI GHT foramen. L2-L3: Mild annular disc bulging with a shallow RIGHT foraminal disc protrusion and annular fissure. Mild facet and ligamentum flavum arthritis. Mild subarticular recess and foraminal stenosis, RIGHT gr eater than LEFT. L3-L4: Diffuse annular disc bulging with facet and ligamentum flavum hypertrophy. Disc encroaching up on the ventral thecal sac and subarticular recesses. Disc contacts the traversing L4 nerve roots. Mil d bilateral foraminal stenosis, RIGHT greater than LEFT. L4-L5: Diffuse annular disc bulging with moderate to severe ligamentum flavum and facet arthritis. En croachment upon the ventral thecal sac resulting in moderate central, bilateral subarticular recess a nd LEFT foraminal stenosis. Mild RIGHT foraminal stenosis. L5-S1: Mild annular disc bulge. Bilateral facet joint arthritis. Osteophytic ridging and disc bulging and facet arthritis resulting in moderate bilateral foraminal stenosis with contact on the exiting L 5 nerve roots, LEFT greater than RIGHT. No discitis or osteomyelitis. Mild facet joint synovitis at L4-5 and L5-S1 with enhancement. MR/MR lumbar spine wo/w con [id number] IMPRESSION: 1. Grade 1 anterolisthesis of L4 by 3 mm. 2. L4-5: Advanced facet joint arthritis. Moderate central, bilateral subarticu lar recess and LEFT foraminal stenosis, mild RIGHT foraminal stenosis. 3. L5-S1: Moderate bilateral foraminal stenosis with contact on the exiting L5 nerve roots, LEFT greater than RIGHT. 4. L3-4: Disc contacts the traversing L4 nerve roots. Mild bilateral foraminal stenosis, RIGHT greater than LEFT. 5. L2-3: Shallow RIGHT foraminal disc protrusion. Mild subarticular recess and foraminal stenosis, RIGHT greater than LEFT. 6. Focal disc osteophyte protrusions at C5-6 and C6-7 encroaching and deformin g the central cervical canal. Consider follow-up MRI C-spine. 7. Facet joint synovitis at L4-5 and L5-S1. 8. No discitis or osteomyelitis or mass.
[2024-08-15] MEDS: gadobenate dimeglumine 20 mL vial IV (16:29)
== END 2024-08-15 14:59 | disposition home or self-care (01) ==
PROVIDERS: PCP Family Medicine; Visit Provider Psychiatry & Neurology Neurology
DX: G93.2 Benign intracranial hypertension (principal); M47.896 Other spondylosis, lumbar region; M48.061 Spinal stenosis, lumbar region without neurogenic claudication; M48.07 Spinal stenosis, lumbosacral region; M51.26 Other intervertebral disc displacement, lumbar region; M25.78 Osteophyte, vertebrae; M50.222 Other cervical disc displacement at C5-C6 level; M50.223 Other cervical disc displacement at C6-C7 level; M65.88 Other synovitis and tenosynovitis, other site; M51.369 Other intervertebral disc degeneration, lumbar region without mention of lumbar back pain or lower extremity pain; M47.897 Other spondylosis, lumbosacral region
CPT/HCPCS: 70553; 72158

== ENCOUNTER → 2024-08-28 14:33 | Outpatient (BNVA) | payer MEDICAID, SELFPAY | PROVIDERS: PCP Family Medicine; Visit Provider Orthopaedic Surgery | DX: M54.2 Cervicalgia (principal); M54.9 Dorsalgia, unspecified | CPT/HCPCS: 72050; 72110 ==

== ENCOUNTER 2024-09-01 15:09 | Emergency (ER) | payer MEDICAID, SELFPAY ==
[2024-09-01 15:11] VITALS: BP 125/53; O2SAT 98
--- NOTE | 2024-09-01 15:14 | XRR_ITS ---
PROCEDURE INFORMATION: Exam: XR Left Hip Exam date and time: 09/01/2024 3:35 PM Age: 49 years old Clinical indication: Hip pain; Left hip TECHNIQUE: Imaging protocol: Radiologic exam of the left hip. Views: 2 or 3 views hip with pelvis when performed. COMPARISON: CR XR lumbar spine min 4V [id number] 08/28/2024 2:34 PM FINDINGS: Bones/joints: No fracture is seen about the left hip. Hip joint appears maintained. No abnormal soft tissue calcification is seen about the hip joint. A 15 mm rounded lucency with sclerotic margin is seen inferomedial left femoral head, with benign radiographic appearance. This likely represents synovial herniation pit (usually an incidental finding). Soft tissues: No significant soft tissue abnormality. XR/XR hip LT 2-3V wo/w pel* [id number] IMPRESSION: 1. 15 mm rounded lucency with sclerotic margin inferior medial left femoral head, likely representing synovial herniation pit (usually an incidental finding). If pain persists, consider follow-up MRI evaluation. 2. No acute findings otherwise.
--- NOTE | 2024-09-01 15:16 | W.ED.LOWEXIN ---
HPI - Extremity Injury (Lower) General: Chief Complaint: Extremity Problem,Nontraumatic Stated Complaint: left hip pain Time Seen by Provider: 09/01/24 15:10 Source: patient and EMS Mode of arrival: EMS Limitations: no limitations History of Present Illness: 49-year-old female states she has a history of chronic back pain she has been seeing spine surgery for this. She states that she has been using a paddle at work underneath her desk and has been having left hip pain it is worsening. States pains in her hip and shoots down her left leg states today she is not able ambulate due to the severe pain she rates the pain a 9 out of 10 she denies any bowel or bladder incontinence denies any fever Related Data Home Medications ?Medication ?Instructions ?Recorded ?Confirmed Hair,Skin and Nails 5,000 mcg PO DAILY 11/09/21 08/28/24 [place] 3 540 mg PO DAILY 11/09/21 08/28/24 atorvastatin 40 mg tablet 40 mg PO QPM 11/09/21 08/28/24 cholecalciferol (vitamin D3) 50 50 mcg PO DAILY 11/09/21 08/28/24 mcg (2,000 unit) capsule (Vitamin D3) conjugated estrogens 0.625 mg/gram 0.625 mg vaginal EVERY OTHER DAY 11/09/21 08/28/24 vaginal cream (Premarin) loratadine 10 mg tablet 10 mg PO DAILY 11/09/21 08/28/24 montelukast 10 mg tablet 10 mg PO QPM 11/09/21 08/28/24 omeprazole 40 mg capsule,delayed 40 mg PO DAILY 11/09/21 08/28/24 release phentermine 18.75 mg capsule 18.75 mg PO DAILY 11/16/23 08/28/24 clobetasol 0.05 % scalp solution 1 applic topical DAILY 08/08/24 08/28/24 fluoxetine 20 mg tablet 20 mg PO TID 08/08/24 08/28/24 gabapentin 300 mg capsule 600 mg PO BID 08/08/24 08/28/24 glucosamine sulfate 1,000 mg 1,000 mg PO BID 08/08/24 08/28/24 capsule phentermine 37.5 mg capsule 37.5 mg PO DAILY 08/08/24 08/28/24 tizanidine 4 mg tablet 4 mg PO Q6H 08/08/24 08/28/24 Previous Rx's ?Medication ?Instructions ?Recorded acetazolamide 250 mg tablet 250 mg PO BID #180 tabs 11/10/21 nicotine (polacrilex) 4 mg buccal 4 mg mucous membrane Q4H PRN 11/10/21 lozenge Nicotine Cravings #90 ea nicotine 21 mg/24 hr daily 1 patch transdermal DAILY #30 ea 11/10/21 transdermal patch estradiol 10 mcg vaginal insert 10 mcg vaginal DAILY 2 weeks #8 11/16/23 (Imvexxy Maintenance Pack) inserts ospemifene 60 mg tablet (Osphena) 60 mg PO DAILY #30 tabs 11/16/23 methocarbamol 750 mg tablet 750 mg PO Q6H PRN spasms #20 tabs 09/01/24 Allergies Allergy/AdvReac Type Severity Reaction Status Date / Time Penicillins Allergy ALGY-Anaphy Verified 08/08/24 08:27 laxis Review of Systems Const: Denies: fever(s), chills, body aches or change in appetite ENMT: Denies: throat pain or dental pain Card: Denies: chest pain Resp: Denies: dyspnea GI: Denies: abdominal pain, nausea, vomiting or diarrhea Musc: Reports: back pain and extremity pain; Denies: neck pain Skin/Breast: Denies: rash Neuro: Denies: headache(s) PFSH ED PFSH: Medical History Psoriasis Sciatica GERD (gastroesophageal reflux disease) Denisha's thyroiditis Rosacea Smoker Cervical intraepithelial neoplasia (DANNY) Optic disc drusen Surgical History History of hysterectomy with oophorectomy Family History Father Diabetes Heart disease Other Hypertension Denies family history of Colon cancer Ovarian cancer Prostate cancer Brain cancer Hypercholesteremia Uterine cancer Thyroid disease Stroke Social History Smoking and tobacco/nicotine status: unknown if used tobacco/nicotine Physical Exam Const: COMMON NORMALS: no acute distress, patient oriented x3 and healthy appearing HENMT: COMMON NORMALS: normocephalic and atraumatic HEAD & SCALP: normocephalic and atraumatic Eye: COMMON NORMALS: conjunctivae normal CONJUNCTIVA: Yes conjunctivae normal Neck/C-Spine: COMMON NORMALS: full ROM and supple Chest: COMMONS NORMALS: normal inspection of the chest Resp: COMMON NORMALS: normal respiratory effort Cardio: COMMON NORMALS: regular rate, regular rhythm and No murmurs present (Cardio) RATE: regular rate RHYTHM: regular rhythm Extremity: NARRATIVE EXTREMITY EXAM: Tenderness noted to the left hip does have pain with range of motion no deformity no warmth to touch distal pulses sensation intact no saddle anesthesia Neuro: COMMON NORMALS: patient oriented x3, moves all extremities and no focal motor deficits Psych: COMMON NORMALS: mental status grossly normal, Normal thought process present and cooperative THOUGHT PROCESS: Normal thought process present Skin: COMMON NORMALS: no rashes or lesions noted and no wounds GENERAL SKIN EXAM: no rashes or lesions noted Course Vital Signs: Vital signs: Vital Signs Respiratory Rate 17 09/01/24 15:41 Blood Pressure 125/53 09/01/24 15:11 Pulse Oximetry 98 09/01/24 15:41 Oxygen Delivery Me thod Room Air 09/01/24 15:11 MDM - Extremity Injury (Lower) Medical Decision Making Patient presents with left hip pain she also has chronic back pain here for dose of steroids here she is ambulatory here no signs of cord compression x-ray shows no fracture she is stable for discharge she is followed back up with Dr. Domínguez return if worsening Medical Records I reviewed the patient's medical records. Lab Data Radiology Impressions Hip/Pelvis X-Ray 09/01/24 15:14 IMPRESSION: 1. 15 mm rounded lucency with sclerotic margin inferior medial left femoral head, likely representing synovial herniation pit (usually an incidental finding). If pain persists, consider follow-up MRI evaluation. 2. No acute findings otherwise. All radiology interpretation(s) finalized by discharge Discharge Plan Discharge Patient Disposition: Home Clinical Impression: Hip pain, left Condition: Stable Prescriptions: New methocarbamol 750 mg tablet 750 mg PO Q6H PRN (Reason: spasms) Qty: 20 0RF No Action tizanidine 4 mg tablet 4 mg PO Q6H phentermine 37.5 mg capsule 37.5 mg PO DAILY clobetasol 0.05 % solution 1 applic topical DAILY glucosamine sulfate 1,000 mg capsule 1,000 mg PO BID Rx Instructions: administer with meals phentermine 18.75 mg capsule 18.75 mg PO DAILY Rx Instructions: must administer 30 minutes before or 1-2 hours after breakfast Osphena 60 mg tablet 60 mg PO DAILY Qty: 30 3RF Rx Instructions: must administer with food, preferably a high-fat meal Imvexxy Maintenance Pack 10 mcg insert 10 mcg vaginal DAILY 14 Days Qty: 8 6RF Rx Instructions: one vaginally daily x two weeks, then one vaginally two times per week atorvastatin 40 mg Tablet 40 mg PO QPM omeprazole 40 mg Capsule,Delayed Release(Dr/Ec) 40 mg PO DAILY Premarin 0.625 mg/gram Cream 0.625 mg VAGINAL EVERY OTHER DAY Rx Instructions: off 5 days; repeat cycle montelukast 10 mg Tablet 10 mg PO QPM loratadine 10 mg Tablet 10 mg PO DAILY Hair,Skin and Nails 5,000 mcg PO DAILY [place] 3 540 mg PO DAILY Vitamin D3 50 mcg (2,000 unit) Capsule 50 mcg PO DAILY nicotine 21 mg/24 hr Patch 24 Hour 1 patch transdermal DAILY Qty: 30 0RF nicotine (polacrilex) 4 mg Lozenge 4 mg mucous membrane Q4H PRN (Reason: Nicotine Cravings) Qty: 90 3RF acetazolamide 250 mg tablet 250 mg PO BID Qty: 180 0RF gabapentin 300 mg capsule 600 mg PO BID fluoxetine 20 mg tablet 20 mg PO TID Discharge Orders: Discharge ED (Routine); Ordered 09/01/24 Ordered By: Nabila Celestin Referrals: Josh Domínguez DO [Physician] - 4-7 days Discharge Diet: Advance as tolerated Discharge Activity: Resume usual activity Patient Instructions: Hip Pain (ED) Print Language: Azeri Coding Level of Care Code ED Invas Tech for Aamir Cristina
[2024-09-01 15:41] VITALS: RESP 17; O2SAT 98
[2024-09-01] MEDS: morphine 4 mg/mL SDV 1 mL IVP (15:41)
[2024-09-01] MEDS: dexamethasone 10 mg/mL INJ IVP (15:41)
== END 2024-09-01 16:33 | disposition home or self-care (01) ==
PROVIDERS: Emergency Provider Emergency Medicine
DX: M25.552 Pain in left hip (principal)
CPT/HCPCS: 73502; 96374; 96375; 99284; J1100; J2270

== ENCOUNTER 2024-09-12 13:48 | Outpatient (RCR) | payer MEDICAID, SELFPAY | END 2024-09-14 23:59 | disposition home or self-care (01) | LOC: SPT 13:48 | PROVIDERS: PCP Family Medicine; Visit Provider Orthopaedic Surgery | DX: M54.9 Dorsalgia, unspecified (principal); M54.2 Cervicalgia; G89.29 Other chronic pain | CPT/HCPCS: 97110; 97161 ==

== ENCOUNTER → 2024-09-13 15:33 | Outpatient (BNVA) | payer MEDICAID, SELFPAY | PROVIDERS: PCP Family Medicine; Visit Provider Orthopaedic Surgery | DX: M43.16 Spondylolisthesis, lumbar region (principal); M25.552 Pain in left hip | CPT/HCPCS: 72110; 73502 ==

== ENCOUNTER 2024-09-15 06:30 | Outpatient (RCR) | payer MEDICAID, SELFPAY | END 2024-10-15 23:59 | disposition home or self-care (01) | LOC: SPT 06:30 | PROVIDERS: PCP Family Medicine; Visit Provider Orthopaedic Surgery | DX: M54.9 Dorsalgia, unspecified (principal); M54.2 Cervicalgia; G89.29 Other chronic pain | CPT/HCPCS: 97110 ==

== ENCOUNTER 2024-09-17 13:33 | Outpatient (CLI) | payer MEDICAID, SELFPAY ==
--- NOTE | 2024-09-17 13:37 | MR_ITS ---
WS: [id number] MRI CERVICAL SPINE NONCONTRAST TECHNIQUE: Sagittal T1, T2 and STIR imaging. Axial T2, gradient, and fiesta imaging. CLINICAL INFORMATION: Neck PAin COMPARISON: None. FINDINGS: Straightening with slight reversal of the normal cervical lordosis. Disc bulging worse at C3-C4 C4-C5 C5-C6 and C6-C7 C2-C3: Mild facet arthropathy. Spinal canal and foramen are patent. C3-C4: Mild disc bulging with a shallow central protrusion. Mild central canal stenosis. Mild facet arthropathy. Mild LEFT foraminal narrowing. C4-C5: Central disc osteophyte protrusion with slight indentation on the cervical cord. Mild central canal stenosis. Mild LEFT greater than RIGHT foraminal narrowing. Mild facet arthropathy. C5-C6: Central disc osteophyte protrusion with moderate central canal stenosis. Slight indentation and flattening of the cervical cord. Severe LEFT greater than RIGHT bony foraminal narrowing. C6-C7: Disc osteophyte complex with moderate central canal stenosis. Severe RIGHT and moderate LEFT bony foraminal narrowing. Mild facet arthropathy. C7-T1: Normal. Visualized brain stem structures: Normal. Prevertebral soft tissues: Normal. MR/MR cervical spin wo con* [id number] IMPRESSION: 1. Straightening with slight reversal the normal cervical lordosis. 2. Disc osteophyte protrusions with mild central canal stenosis C3-C4 and C4-C 5. 3. Moderate central canal stenosis C5-C6 and C6-C7. 4. Severe bony foraminal stenosis bilateral C5-C6 and RIGHT C6-7. Moderate LEF T C6-7 bony foraminal narrowing.
== END 2024-09-17 13:34 | disposition home or self-care (01) ==
PROVIDERS: PCP Family Medicine; Visit Provider Orthopaedic Surgery
DX: M48.02 Spinal stenosis, cervical region (principal); M25.78 Osteophyte, vertebrae; M50.221 Other cervical disc displacement at C4-C5 level; M50.21 Other cervical disc displacement, high cervical region; M50.31 Other cervical disc degeneration, high cervical region; M50.321 Other cervical disc degeneration at C4-C5 level; M50.322 Other cervical disc degeneration at C5-C6 level; M50.323 Other cervical disc degeneration at C6-C7 level; M47.892 Other spondylosis, cervical region; M50.222 Other cervical disc displacement at C5-C6 level
CPT/HCPCS: 72141

== ENCOUNTER 2024-09-28 15:20 | Outpatient (CLI) | payer MEDICAID, SELFPAY ==
--- NOTE | 2024-09-28 16:00 | MR_ITS ---
WS: [id number] MRI LEFT HIP WITHOUT CONTRAST. COMPARISON: Radiograph 09/13/2024 Multiplanar, multisequence imaging is performed without contrast. Mild narrowing of the LEFT hip joint. No acute fracture or marrow edema. There is no joint effusion. No cysts identified or CAM deformity. No soft tissue mass or destructive mass. There is moderate increased signal over the greater tuberosity involving the tendon of the gluteus medius muscle. This is increased edema within the gluteus medius muscle and tendon. No significant fluid distention of the bursa over the greater trochanter. Urinary bladder is not distended. No free fluid within the visualized pelvis. MR/MR hip LT wo con* [id number] IMPRESSION: 1. No marrow edema or fracture LEFT hip. 2. Mild narrowing of the LEFT hip joint. 3. Increased signal in the gluteus medius muscle and tendon over the greater t rochanter consistent with tendinopathy. Advanced small tear involving the glute us medius tendon is not excluded. There is no full-thickness tear.
== END 2024-09-28 15:21 | disposition home or self-care (01) ==
PROVIDERS: PCP Family Medicine; Visit Provider Orthopaedic Surgery
DX: M25.852 Other specified joint disorders, left hip (principal); R93.7 Abnormal findings on diagnostic imaging of other parts of musculoskeletal system
CPT/HCPCS: 73721

== ENCOUNTER 2024-10-16 05:07 | Outpatient (RCR) | payer MEDICAID, SELFPAY | END 2024-10-26 08:27 | disposition home or self-care (01) | LOC: SPT 05:07 | PROVIDERS: PCP Family Medicine; Visit Provider Orthopaedic Surgery | DX: M54.9 Dorsalgia, unspecified (principal); M54.2 Cervicalgia; G89.29 Other chronic pain | CPT/HCPCS: 97110 ==

== ENCOUNTER 2025-06-15 15:12 | Emergency (ER) | payer MEDICAID, SELFPAY ==
[2025-06-15 15:14] VITALS: BP 114/70; PULSE 78; TEMP 36.5; O2SAT 98
--- OUTSIDE RECORDS SUMMARY | 2025-06-15 15:17 | XMS_ITS | Encounter Summary ---
Author Organization [facility] Address [address] [place] [address] Care Team Providers Care Oil Burner Technician Name Role Phone Unavailable Primary Care Provider Unavailabl e Encounter Details Date Type Department Care Team (Latest Contact Info) Description 04/29/1998 Outpatient Historical [facility] Medicine [place] [address] [phone] Riky Arango MD [address] [phone] Surgical convalescence (Primary Dx) Social History Tobacco Use Types Packs/Day Years Used Date Smoking Tobacco: Never Assessed Comments Unknown Sex and Gender Information Value Date Recorded Sex Assigned at Not on file 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
--- OUTSIDE RECORDS SUMMARY | 2025-06-15 15:17 | XMS_ITS | Encounter Summary ---
Author Organization [facility] Address [address] [place] [address] Care Team Providers Care Dobie Man Name Role Phone Unavailable Primary Care Provider Unavailabl e Encounter Details Date Type Department Care Team (Latest Contact Info) Description 02/09/1999 Outpatient Historical [facility] Medicine [place] 104 [facility] [address] [place] [address] Sascha Recio MD [address] [phone] Tobacco use disorder (Primary Dx); Benign alexis skin trunk Social History Tobacco Use Types Packs/Day Years Used Date Smoking Tobacco: Never Assessed Comments Unknown Sex and Gender Information Value Date Recorded Sex Assigned at Not on file 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
--- OUTSIDE RECORDS SUMMARY | 2025-06-15 15:17 | XMS_ITS | Encounter Summary ---
Author Organization [facility] Address [address] [place] [address] Care Team Providers Care Superintendent Seed Mill Name Role Phone Unavailable Primary Care Provider Unavailabl e Encounter Details Date Type Department Care Team (Latest Contact Info) Description 04/22/1998 Outpatient Historical [facility] Medicine [place] [address] [phone] Riky Arango MD [address] [phone] Benign neoplasm of skin, site unspecified (Primary Dx) Social History Tobacco Use Types Packs/Day Years Used Date Smoking Tobacco: Never Assessed Comments Unknown Sex and Gender Information Value Date Recorded Sex Assigned at Not on file 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
--- OUTSIDE RECORDS SUMMARY | 2025-06-15 15:17 | XMS_ITS | Encounter Summary ---
Author Organization [facility] Address [address] [place] [address] Care Team Providers Care Scale Mechanic Name Role Phone Unavailable Primary Care Provider Unavailabl e Encounter Details Date Type Department Care Team (Latest Contact Info) Description 08/11/2000 Outpatient Historical [facility] Medicine [place] [address] 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
--- OUTSIDE RECORDS SUMMARY | 2025-06-15 15:17 | XMS_ITS | Encounter Summary ---
Author Organization [facility] Address [address] [place] [address] Care Team Providers Care Marine Consultant Name Role Phone Unavailable Primary Care Provider Unavailabl e Encounter Details Date Type Department Care Team (Latest Contact Info) Description 03/13/1999 Outpatient Historical [facility] Medicine [place] 104 [facility] [address] [place] [address] Sascha Recio MD [address] [phone] Urinary tract infection, site not specified (Primary Dx); Anal/rectal abscess Social History Tobacco Use Types Packs/Day Years Used Date Smoking Tobacco: Never Assessed Comments Unknown Sex and Gender Information Value Date Recorded Sex Assigned at Not on file 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
--- OUTSIDE RECORDS SUMMARY | 2025-06-15 15:17 | XMS_ITS | Encounter Summary ---
Author Organization [facility] Address [address] [place] [address] Care Team Providers Care Computer Forensic Specialist Name Role Phone Unavailable Primary Care Provider Unavailabl e Encounter Details Date Type Department Care Team (Latest Contact Info) Description 07/19/2000 Outpatient Historical [facility] Medicine [place] 104 [facility] [address] [place] [address] Jason Vallecillo, NO ADDRESS ON FILE Unspecified otitis media (Primary Dx) Social History Tobacco Use Types Packs/Day Years Used Date Smoking Tobacco: Never Assessed Comments Unknown Sex and Gender Information Value Date Recorded Sex Assigned at Not on file 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
--- OUTSIDE RECORDS SUMMARY | 2025-06-15 15:17 | XMS_ITS | Clinical Summary ---
Author Organization [facility] Address [address] 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 0 Active selenium sulfide (SELSUN) 2.5 % Lotion Apply to affected area daily. 0 Active loratadine (CLARITIN) 10 mg tablet Take 10 mg by mouth daily. 0 Active sodium chloride (OCEAN) 0.65 % Aerosol, [place] Administer 2 Sprays in each nostril PRN for Allergies. 0 Active omega-3 acid ethyl esters (LOVAZA) 1 gram Capsule Take 4 Grams by mouth daily with breakfast. 0 Active triamcinolone acetonide (KENALOG) 0.1 % Cream Apply to affected area daily. 0 Active FLUoxetine (PROzac) 20 mg capsule Take 60 mg by mouth daily. 0 Active atorvastatin (LIPITOR) 40 mg tablet Take 40 mg by mouth daily. Active gabapentin (NEURONTIN) 300 mg capsule 600 mg in AM and 600 mg PM Active montelukast (SINGULAIR) 10 mg tablet Take 10 mg by mouth daily at bedtime. Active omeprazole (PriLOSEC) 40 mg Capsule, Delayed Release(E.C.) Take 40 mg by mouth daily. Active folic acid (FOLVITE) 1 mg tablet Take 1 mg by mouth daily. Active clindamycin phosphate (CLEOCIN) 1 % Solution Apply to affected area 2 times daily. Active clobetasoL (TEMOVATE) 0.05 % Cream Apply to affected area 2 times daily. Active glucosamine HCl/chondroitin mitchell (GLUCOSAMINE-CH ONDROITIN ORAL) Take by mouth. Active multivit with calcium,iron,mi n (WOMEN'S DAILY FORMULA ORAL) Take by mouth. Activ e clobetasoL (TEMOVATE) 0.05 % Solution Apply to affected area daily. Apply to affected area daily. 50 mL 1 4 Active cranberry fruit (Cranberry) 450 mg Tablet Take by mouth. Activ e methocarbamoL (ROBAXIN) 750 mg tablet TAKE 1 TABLET BY MOUTH EVERY 6 HOURS NEEDED FOR SPASMS 5 Active potassium citrate 99 mg Capsule Take 99 mg by mouth daily. Active topiramate (TOPAMAX) 25 mg tablet TAKE 1 TABLET BY MOUTH TWICE DAILY NEEDED FOR NERVE PAIN. 5 Active acetaZOLAMIDE (DIAMOX) 250 mg tablet Take 250 mg by mouth 2 times daily. Active atorvastatin (LIPITOR) 40 mg tablet Take 40 mg by mouth. 5 11/01/19 26 Active calcipotriene (DOVONEX) 0.005 % Cream APPLY A SMALL AMOUNT TO THE AFFECTED AREA TWICE A DAY USE ON THE ELBOWS. WASH HANDS BEFORE AND AFTER USE! 5 12/28/19 26 Active FLUoxetine (PROzac) 40 mg capsule Take 40 mg by mouth daily. 5 11/01/19 26 Active ACETAZOLAMIDE ORAL Take 250 mg by mouth 2 times daily. Active methotrexate (RHEUMATREX) 2.5 mg Tablet Take 10 mg by mouth. 5 Active glucosamine-D3- hyaluronic acid 1,000 mg- 25 mcg-1.65 mg Tablet Take 1,000 mg by mouth 2 times daily. Active Glucosamine-Cho ndroitin Tablet Take 1 Tablet by mouth. Active fluticasone propionate (FLONASE) 50 mcg/spray [place], Suspension nasal inhaler Administer 1 [place] in each nostril daily. 5 10/29/19 Active DOCOSAHEXAENOIC ACID ORAL Take 1,000 mg by mouth 2 times daily. Active DIMETHICONE TOPICAL Apply 0.005 Applications to affected area. Active diazePAM (VALIUM) 5 mg tablet TAKE 1 TABLET BY MOUTH NEEDED FOR ANXIETY . TAKE PRIOR TO PROCEDURE AT PAIN MANAGEMENT Active cyanocobalamin 1,000 mcg Tablet Take 1,000 mcg by mouth daily. Active Cranberry 500 mg Capsule Take 500 mg by mouth 2 times daily. Active Cholecalciferol , Vitamin D3, 50 mcg (2,000 unit) Capsule Take 50 mcg by mouth daily. Active cholecalciferol , vitamin D3, 1,000 unit Take 50 mcg by mouth. Active multivitamin-mi neral supplement (ELDERTONIC) 0.5-0.6-7-0.7 mg Elixir Take 5 mL by mouth daily. Active OMEPRAZOLE ORAL Take 40 mg by mouth daily. Active FLUoxetine (PROzac) 20 mg capsule Take 20 mg by mouth. Active FLUTICASONE FUROATE INHALATION Administer 50 mcg in each nostril daily. Active FOLIC ACID ORAL Take 1,000 mcg by mouth daily. Active GABAPENTIN, BULK, MISC 300 mg by Other route. Active METHOCARBAMOL ORAL Take 750 mg by mouth 2 times daily. Active montelukast sodium (MONTELUKAST, BULK, MISC) Take 10 mg by mouth daily. Active [id number] RROUS FUMARATE ORAL Take by mouth. Activ e gabapentin (NEURONTIN) 300 mg capsule Take 300 mg by mouth 2 times daily. 5 11/01/19 Active methocarbamoL (ROBAXIN) 500 mg tablet Take 500 mg by mouth. Active omeprazole (PriLOSEC) 40 mg Capsule, Delayed Release(E.C.) Take 40 mg by mouth daily before breakfast. 5 11/01/19 Active tirzepatide, weight loss, (Zepbound) 7.5 mg/0.5 mL Pen Injector Inject 0.5 mL (7.5 mg) by subcutaneous injection every 7 days. 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 Rx is given to patient. Thyroid nodule 10/31/2024 Shoulder joint pain 10/31/2024 Intracranial hypertension 09/03/2024 Assessment & Plan (11/14/2024 1:29 PM CDT): Patient is referred by Dr. Hao Damon for possible papilledema. Patient notes that she has a history of IIH and has been on the dose of 250mg Diamox for nearly 3-4 years now. There is NO current papilledema present or found on patient's imaging or on physical examination. OCT Nerve, Nerve photos and HVF 24-2 are ordered, performed and reviewed with patient. Will forward these results to Dr. Bui for further interpretation and treatment of patient based on his findings. MRA was ordered by him and was also performed today. Will see patient yearly or sooner if Dr. Bui requests repeat of testing in a certain increment of time. Patient states her understanding and is agreeable to plan of care. 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 Gastroesophageal reflux disease 10/04/2018 Depressive disorder 05/11/2018 Encounters Date Type Department Care Team Description 06/04/2025 External Device Data [facility] ABSTRACTION Provider, Abstract 05/22/2025 Patient Outreach [address] [phone] [facility] 05/21/2025 External Device Data [facility] ABSTRACTION Provider, Abstract 05/15/2025 External Device Data [facility] ABSTRACTION Provider, Abstract 05/14/2025 External Device Data [facility] ABSTRACTION Provider, Abstract 05/08/2025 External Device Data [facility] ABSTRACTION Provider, Abstract 04/30/2025 External Device Data [facility] ABSTRACTION Provider, Abstract 04/30/2025 External Device Data [facility] ABSTRACTION Provider, Abstract 04/24/2025 Results Follow-Up [address] [phone] Bertha Alicea MD VITAMIN D 25 HYDROXY, CBC WITH DIFFERENTIAL, COMPREHENSIVE METABOLIC PANEL, MAGNESIUM LEVEL 04/22/2025 2:00 PM CDT Office Visit [address] [phone] Bertha Alicea MD Constipation, unspecified constipation type (Primary Dx); Screening mammogram, encounter for; Other fatigue; Prediabetes; Obesity (BMI 35.0-39.9 without comorbidity) 04/22/2025 Patient Outreach [address] [phone] [facility] 04/08/2025 Patient Outreach [address] [address] [facility] 03/19/2025 External Device Data [facility] ABSTRACTION Provider, Abstract 03/19/2025 External Device Data [facility] ABSTRACTION Provider, Abstract 03/19/2025 External Device Data [facility] ABSTRACTION Provider, Abstract 03/15/2025 1:30 PM CDT Office Visit [facility] [address] [place] [address] Hao Damon MD Papilledema (Primary Dx) from Last 3 Months Family History Medical History Relation Name Comments Cancer Father Gerry Ames Materal gra ndmother and grandfather, paternal grandfather Diabetes Father Gerry Ames Paternal gr andmother ( both were pre-diabetic) Lung Cancer Father Gerry Ames Lung Cancer Maternal Grandfather Skin Cancer Maternal Grandmother Throat Cancer Maternal Grandmother Liver Cancer Paternal Grandfather Prostate Cancer Paternal Grandfather Heart Disease Paternal Grandmother Mauricio Ames Mental illness Paternal Grandmother Mauricio Ames Stroke Paternal Grandmother Mauricio Ames Thyroid Disease Paternal Grandmother Mauricio Ames Relation Name Status Comments Father Gerry Ames Maternal Grandfather Maternal Grandmother Paternal Grandfather Paternal Grandmother Mauricio Ames Alive Social History Tobacco Use Types Packs/Day Years Used Date Smoking Tobacco: Every Day Cigarettes Smokeless Tobacco: Never Tobacco Cessation:Ready to Q uit: No; Counseling Given: Yes Alcohol Use Standard Drinks/Week Comments Yes 0 (1 standard drink = 0.6 oz pur e alcohol) Feeling Safe Answer Date Recorded Are you in a relationship wi th someone who hurts you emotionally and/or physically? 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 Gender Identity Not on file Sexual Orientation Not on file Last Filed Vital Signs Vital Sign Reading Time Taken Comments Blood Pressure 108/69 04/22/2025 2:14 PM CDT Pulse 79 04/22/2025 2:14 PM CDT Temperature 36.2 C (97.1 F) 04/22/2025 2:14 PM CDT Respiratory Rate 17 04/22/2025 2:14 PM CDT Oxygen Saturation 99% 04/22/2025 2:14 PM CDT Inhaled Oxygen Concentration - - Weight 88.6 kg (195 lb 6.4 oz) 04/22/2025 2:14 P M CDT Height 162.6 cm (5' 4 ) 04/22/2025 2:14 PM CDT Body Mass Index 33.54 04/22/2025 2:14 PM CDT Plan of Treatment Upcoming Encounters Date Type Department Care Team (Late st Contact Info) Description 07/22/2025 2:00 PM BILINGUAL RESEARCH INTERVIEWER Office Visit [address] [phone] Bertha Alicea MD [address] [address] 01/21/2026 2:00 PM CDT Office Visit [facility] [address] [place] [phone] Hao Damon MD [address] [place] [address] Health Maintenance Due Date Last Done Comments DTAP/TDAP/TD VACCINES (1 - Tdap) 1993 HEPATITIS B VACCINES (1 of 3 - 19+ 3-dose series) 1993 COLORECTAL SCREENING 2019 FIT/FOBT Q 1 year 2019 Flex Sig/CT Colonography Q 5 years 2019 ZOSTER VACCINE (1 of 2) 02/17/2024 INFLUENZA VACCINE (#1) 2025 BREAST CANCER SCREENING 03/05/2025 03/05/20 24, 03/05/2024, 03/05/2024, Additional history exists Preventative Visit-Managed Medicaid 04/22/2026 Postponed from 1993 (Therapeutic Plan Prohibits) Colorectal Cancer Screening 10/13/2026 FIT-DNA Q 3 years 10/13/2026 10/14/2023 Pre-Diabetes and Diabetes Screening 01/08/2028 01/07/2025, 02/20/2024 Procedures Procedure Name Priority Date/Time Associated Diagnosis Comments MAGNESIUM LEVEL Routine 04/22/2025 3:19 PM CDT Constipation, unspecified constipation type COMPREHENSIVE METABOLIC PANEL Routine 04/22/2025 3:19 PM CDT Other fatigue CBC WITH DIFFERENTIAL Routine 04/22/2025 3:19 PM CDT Other fatigue VITAMIN D 25 HYDROXY Routine 04/22/2025 3:19 PM CDT Constipation, unspecified constipation type Other fatigue HEMOGLOBIN A1C Routine 01/07/2025 4:13 PM CDT Prediabetes Obesity (BMI 35.0-39.9 without comorbidity) COLON CANCER SCREEN, STOOL DNA Routine 10/14/2023 5:32 PM CDT Encounter for colorectal cancer screening from Last 3 Months or Most Recently Relevant to Health Maintenance Results * CBC WITH DIFFERENTIAL (04/22/2025 3:19 PM CDT) WBC 6.1 3.8 - 10.8 Thousand/u L [facility] RBC 4.30 3.80 - 5.10 Million/uL [facility] HEMOGLOBIN 13.8 11.7 - 15.5 g/dL [facility] HEMATOCRIT 42.5 35.0 - 45.0 % [facility] MCV 98.8 80.0 - 100.0 fL [facility] MCH 32.1 27.0 - 33.0 pg [facility] MCHC 32.5 32.0 - 36.0 g/dL [facility] Comment: For adults, a slight decrease in the calculated MCHC value (in the range of 30 to 32 g/dL) is most likely not clinically significant; however, it should be interpreted with caution in correlation with other red cell parameters and the patient's clinical condition. RDW 12.9 11.0 - 15.0 % [facility] PLATELETS 304 140 - 400 Thousand/u L [facility] MPV 10.0 7.5 - 12.5 fL [facility] NEUTROPHIL ABSOLUTE 3,623 1,500 - 7,800 cells/uL [facility] LYMPHOCYTE ABSOLUTE 1,824 850 - 3,900 cells/uL [facility] MONOCYTE ABSOLUTE 482 200 - 950 cells/uL [facility] EOSINOPHIL ABSOLUTE 128 15 - 500 cells/uL [facility] BASOPHILS ABSOLUTE 43 0 - 200 cells/uL [facility] NEUTROPHIL 59.4 % [facility] LYMPHOCYTES 29.9 % [facility] MONOCYTE 7.9 % [facility] EOSINOPHILS 2.1 % [facility] BASOPHILS 0.7 % [facility] Comment: Test Performed at: [facility] [address] [address] Yolanda Rodarte MD Blood 04/22/2025 3:19 PM CDT 04/23/2025 3:55 AM CDT Bertha Alicea MD HEMATOLOGY ORDERABLES Final Result Performing Organization Address [facility] Co de Phone Number [facility] [phone] [facility] [address] [facility] [place] [address] * VITAMIN D 25 HYDROXY (04/22/2025 3:19 PM CDT) VITAMIN D, 25 OH, TOTAL 43 30 - 100 ng/mL [facility] Comment: Vitamin D Status 25-OH Vitamin D: Deficiency: <20 ng/mL Insufficiency: 20 - 29 ng/mL Optimal: > or = 30 ng/mL For 25-OH Vitamin D testing on patients on D2-supplementation and patients for whom quantitation of D2 and D3 fractions is required, the Quest[facility]ure[facility](TM) 25-OH VIT D, (D2,D3), LC/MS/MS is recommended: order code 70249 (patients >2yrs). See Note 1 Note 1 For additional information, please refer to http://education.[employer]/faq/MYF736 (This link is being provided for informational/ educational purposes only.) Test Performed at: [facility] [address] [facility] [place] [address] Yolanda Rodarte MD Blood 04/22/2025 3:19 PM CDT 04/23/2025 3:55 AM CDT us Bertha Alicea MD CHEMISTRY ORDERABLES Final Result Performing Organization Address [facility]/ZIP Co de Phone Number [facility] [phone] [facility] [place] [address] [facility] [place] [address] * MAGNESIUM LEVEL (04/22/2025 3:19 PM CDT) MAGNESIUM 1.9 1.5 - 2.5 mg/dL [facility] Comment: Test Performed at: [facility] [address] [facility] [place] [address] Yolanda Rodarte MD Blood 04/22/2025 3:19 PM CDT 04/23/2025 3:55 AM CDT us Bertha Alicea MD CHEMISTRY ORDERABLES Final Result [facility] [phone] [facility] [address] [place] [address] * (ABNORMAL) COMPREHENSIVE METABOLIC PANEL (04/22/2025 3:19 PM CDT) GLUCOSE 76 65 - 99 mg/dL [facility] Comment: Fasting reference interval BUN 18 7 - 25 mg/dL [facility] CREATININE 0.76 0.50 - 1.03 mg/dL [facility] GFR 95 > OR = 60 mL/min/1. 73m2 [facility] BUN/CREAT RATIO SEE NOTE: 6 - 22 (calc) [facility] Comment: Not Reported: BUN and Creatinine are within reference range. SODIUM 140 135 - 146 mmol/L [facility] POTASSIUM 4.0 3.5 - 5.3 mmol/L [facility] CHLORIDE 111(H) 98 - 110 mmol/L [facility] CO2 22 20 - 32 mmol/L [facility] CALCIUM 9.4 8.6 - 10.4 mg/dL [facility] TOTAL PROTEIN 5.9(L) 6.1 - 8.1 g/dL [facility] ALBUMIN 4.0 3.6 - 5.1 g/dL [facility] GLOBULIN 1.9 1.9 - 3.7 g/dL (calc) [facility] ALBUMIN/GLOBULIN RATIO 2.1 1.0 - 2.5 (calc) [facility] BILIRUBIN TOTAL 0.2 0.2 - 1.2 mg/dL [facility] ALKALINE PHOSPHATASE 64 37 - 153 U/L [facility] AST 13 10 - 35 U/L [facility] ALT 12 6 - 29 U/L [facility] Comment: Test Performed at: [facility] [address] [address] [address] Yolanda Rodarte MD Blood 04/22/2025 3:19 PM CDT 04/23/2025 3:55 AM CDT Bertha Alicea MD CHEMISTRY ORDERABLES Final Result Performing Organization Address [facility]/ZIP Co de Phone Number [facility] [phone] [facility] [address] [place] [address] * HEMOGLOBIN A1C (01/07/2025 4:13 PM CDT) HEMOGLOBIN A1C 5.5 <5.7 % [facility] Comment: For the purpose of screening for the presence of diabetes: <5.7% Consistent with the absence of diabetes 5.7-6.4% Consistent with increased risk for diabetes (prediabetes) > or =6.5% Consistent with diabetes This assay result is consistent with a decreased risk of diabetes. Currently, no consensus exists regarding use of hemoglobin A1c for diagnosis of diabetes in children. According to [place] Diabetes Association (ADA) guidelines, hemoglobin A1c <7.0% represents optimal control in non- diabetic patients. Different metrics may apply to specific patient populations. Standards of Medical Care in Diabetes(ADA). ESTIMATED AVERAGE GLUCOSE (MG/DL) 111 mg/dL [facility] ESTIMATED AVERAGE GLUCOSE (MMOL/L) 6.2 mmol/L [facility] Comment: Test Performed at: [facility] [address], [place] [address] Yolanda Rodarte MD Blood 01/07/2025 4:13 PM CDT 01/09/2025 2:44 AM CDT us Bertha Alicea MD CHEMISTRY ORDERABLES Final Result Performing Organization Address City/[facility]/ZIP Co de Phone Number [facility] [phone] [facility] [address] [place] [address] * COLON CANCER SCREEN, STOOL DNA (10/14/2023 5:32 PM CDT) COLOGUARD RESULT Negative Negative [facility] Comment: NEGATIVE TEST RESULT. A negative Cologuard result indicates a low likelihood that a colorectal cancer (CRC) or advanced adenoma (adenomatous polyps with more advanced pre-malignant features) is present. The chance that a person with a negative Cologuard test has a colorectal cancer is less than 1 in 1500 (negative predictive value >99.9%) or has an advanced adenoma is less than 5.3% (negative predictive value 94.7%). These data are based on a prospective cross-sectional study of 10,000 individuals at average risk for colorectal cancer who were screened with both Cologuard and colonoscopy. (Kinga Contreras al, N Engl J Med 2014;370(14):6120-4697) The normal value (reference range) for this assay is negative. COLOGUARD RE-SCREENING RECOMMENDATION: Periodic colorectal cancer screening is an important part of preventive healthcare for asymptomatic individuals at average risk for colorectal cancer. Following a negative Cologuard result, the [place] Cancer Society and U.S. Multi-Society Task Force screening guidelines recommend a Cologuard re-screening interval of 3 years. References: [place] Cancer Society Guideline for Colorectal Cancer Screening: https://www.cancer.org/cancer/kjwuf-vzsxyb-fdjnca/mrdapqajh-hifmkvcdf-ziyqmtf/ac s-rec ommendations.html.; Boogie DK, Yousif RAMIREZ, Alexia CornellK, Colorectal Cancer Screening: Recommendations for Physicians and Patients from the U.S. Multi-Society Task Force on Colorectal Cancer Screening , Am J Gastroenterology 2017; 112:7760-7602. TEST DESCRIPTION: Composite algorithmic analysis of stool DNA-biomarkers with hemoglobin immunoassay. Quantitative values of individual biomarkers are not reportable and are not associated with individual biomarker result reference ranges. Cologuard is intended for colorectal cancer screening of adults of either sex, 45 years or older, who are at average-risk for colorectal cancer (CRC). Cologuard has been approved for use by the U.S. FDA. The performance of Cologuard was established in a cross sectional study of average-risk adults aged 50-84. Cologuard performance in patients ages 45 to 49 years was estimated by sub-group analysis of near-age groups. Colonoscopies performed for a positive result may find as the most clinically significant lesion: colorectal cancer [4.0%], advanced adenoma (including sessile serrated polyps greater than or equal to 1cm diameter) [20%] or non- advanced adenoma [31%]; or no colorectal neoplasia [45%]. These estimates are derived from a prospective cross-sectional screening study of 10,000 individuals at average risk for colorectal cancer who were screened with both Cologuard and colonoscopy. (Kinga Osorio et al, N Engl J Med 2014;370(14):9728-9417.) Cologuard may produce a false negative or false positive result (no colorectal cancer or precancerous polyp present at colonoscopy follow up). A negative Cologuard test result does not guarantee the absence of CRC or advanced adenoma (pre-cancer). The current Cologuard screening interval is every 3 years. ([place] Cancer Society and U.S. Multi-Society Task Force). Cologuard performance data in a 10,000 patient pivotal study using colonoscopy as the reference method can be accessed at the following location: www.[employer]/results. Additional description of the Cologuard test process, warnings and precautions can be found at www.[employer].com. Stool STOOL SPECIMEN / Unknown 10/14/2023 5:32 PM CDT 10/15/2023 4:00 PM CDT us Bertha Alicea MD BODY FLUIDS AND STOOLS [employer] CLIA # [id number] [address] , [address] [place] [address] from Last 3 Months or Most Recently Relevant to Health Maintenance [place] [address] [place] [id number] [employer] Medicaid Care Teams Steel Analyst Relationship Specialty Start Date End Date Bertha Alicea MD [address] [phone] PCP - General Family Practice 09/19/23
--- OUTSIDE RECORDS SUMMARY | 2025-06-15 15:17 | XMS_ITS | Clinical Summary ---
Author Organization [facility] Address [address] [place] [address] Phone Care Team Providers Care Poultry Slaughterer Name Role Phone Unavailable Primary Care Provider Unavailabl e Allergies Active Allergy Reactions Criticality Noted Date Comments Penicillins Swelling Low 04/27/2020 Medications celecoxib (CeleBREX) 200 mg capsule Take 200 mg by mouth 2 times daily. Active omega-3 acid ethyl esters (LOVAZA) 1 gram Capsule Take 4 Grams by mouth daily with breakfast. Active ergocalciferol, vitamin D2, (VITAMIN D ORAL) Take 1 Tablet by mouth daily. Active conjugated estrogens (PREMARIN) 0.625 mg/gram vaginal cream Insert vaginally daily at bedtime. Active selenium sulfide (SELSUN) 2.5 % Lotion Apply to affected area daily. Active sodium chloride (OCEAN) 0.65 % Aerosol, Cameron Administer 2 Sprays in each nostril PRN for Allergies. Active Calvert Tar 2 % Ointment Apply to affected area daily. Active FLUoxetine (PROzac) 20 mg capsule Take 20 mg by mouth daily. Active fluticasone propionate (FLONASE) 50 mcg/spray Cameron, Suspension nasal inhaler Administer 2 Sprays in each nostril daily. Active loratadine (CLARITIN) 10 mg tablet Take 10 mg by mouth daily. Active omeprazole (PriLOSEC) 20 mg Capsule, Delayed Release(E.C.) Take 20 mg by mouth daily. Active norethindrone-et hinyl estradiol 0.5-2.5 mg-mcg tablet Take 1 Tablet by mouth daily. Active triamcinolone acetonide (KENALOG) 0.1 % Cream Apply to affected area daily. Active albuterol HFA 90 mcg inhaler Take 2 Puffs by inhalation every 6 hours as needed for Wheezing or Shortness of Breath. 8.5 Gram 0 Active promethazine-cod eine (PHENERGAN WITH CODEINE) 6.25-10 mg/5 mL solutionIndicati ons:Chronic bronchitis, unspecified chronic bronchitis type (CMS/HCC) Take 5 mL by mouth every 4 hours as needed for Congestion. 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 Gender Identity Not on file Sexual Orientation Not on file Last Filed Vital Signs Vital Sign Reading Time Taken Comments Blood Pressure 103/77 04/27/2020 3:56 PM CDT Pulse 79 04/27/2020 2:35 PM CDT Temperature 35.7 C (96.3 F) 04/27/2020 3:56 PM CDT Respiratory Rate 20 04/27/2020 3:56 PM CDT Oxygen Saturation 98% 04/27/2020 3:56 PM CDT Inhaled Oxygen Concentration - - Weight 111.9 kg (246 lb 9.6 oz) 04/27/2020 2:35 PM CDT Height 162.6 cm (5' 4 ) 04/27/2020 2:35 PM CDT Body Mass Index 42.33 04/27/2020 2:35 PM CDT Plan of Treatment Health Maintenance Due Date Last Done Comments DTAP/TDAP/TD VACCINES (1 - Tdap) 1993 HEPATITIS B VACCINES (1 of 3 - 19+ 3-dose series) 08/1992 HPV/Cotest (21-29) 1995 CERVICAL CANCER SCREENING 02/17/2004 HPV/Cotest (30-65) 02/17/2004 PAP SMEAR 02/17/2004 BREAST CANCER SCREENING 2014 COLORECTAL SCREENING 2019 Colorectal Cancer Screening 2019 FIT-DNA Q 3 years 2019 FIT/FOBT Q 1 year 2019 Flex Sig/CT Colonography Q 5 years 2019 ZOSTER VACCINE (1 of 2) 02/17/2024 INFLUENZA VACCINE (#1) 2025
--- NOTE | 2025-06-15 15:25 | ECG_ITS ---
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 Measurements Intervals Josephine Rate: 64 P: 59 SC: 168 QRS: -21 QRSD: 140 T: 90 QT: 445 QTc: 462 Interpretive Statements SINUS RHYTHM LEFT BUNDLE BRANCH BLOCK [120+ ms QRS DURATION, 80+ ms Q/S IN V1/V2, 85+ ms R IN I/aVL/V5/V6] Compared to ECG 11/09/2021 01:36:58 NO SIGNIFICANT CHANGE Electronically Signed On 06-15-2025 17:00:35 MORTGAGE BROKER by Josafat Oviedo M.D. [id number]
--- NOTE | 2025-06-15 15:33 | W.ED.DIZZY ---
HPI - Dizziness General: Chief Complaint: Dizziness Stated Complaint: DIZZY Time Seen by Provider: 06/15/25 15:13 History of Present Illness: HPI Narrative: Patient is a pleasant 50-year-old female that has history of intracranial hypertension, on acetazolamide, that presents to the emergency room due to dizziness, nausea, vomiting, worse with movement, that started approximately 10 AM. Yesterday, patient noted a flare of her left ocular pain and posterior left occipital pain. This was mild compared to previous issues. She would rate this at a 1. This was transient. Patient did not have any fevers or recent illness. Last administered medications: Was on , 2 days ago. Patient stated sometimes I am stupid and do not take it. She also relates that over the last few months, when she squats, or bends over, she has association of dizziness. She had nausea without emesis today. Patient was brought in by EMS, IV started, Zofran given. Associated symptoms: Denies change in hearing, chest pain, headache(s) (transient posterior left), nausea, palpitations, syncope or tinnitus Associated neuro symptoms: Deny confusion or numbness in extremities Related Data Home Medications ?Medication ?Instructions ?Recorded ?Confirmed Hair,Skin and Nails 5,000 mcg PO DAILY 11/09/21 04/11/25 Hoagland 3 540 mg PO DAILY 11/09/21 04/11/25 atorvastatin 40 mg tablet 40 mg PO QPM 11/09/21 04/11/25 cholecalciferol (vitamin D3) 50 50 mcg PO DAILY 11/09/21 04/11/25 mcg (2,000 unit) capsule (Vitamin D3) conjugated estrogens 0.625 mg/gram 0.625 mg vaginal EVERY OTHER DAY 11/09/21 04/11/25 vaginal cream (Premarin) loratadine 10 mg tablet 10 mg PO DAILY 11/09/21 04/11/25 montelukast 10 mg tablet 10 mg PO QPM 11/09/21 04/11/25 omeprazole 40 mg capsule,delayed 40 mg PO DAILY 11/09/21 04/11/25 release phentermine 18.75 mg capsule 18.75 mg PO DAILY 11/16/23 04/11/25 clobetasol 0.05 % scalp solution 1 applic topical DAILY 08/08/24 04/11/25 fluoxetine 20 mg tablet 20 mg PO TID 08/08/24 04/11/25 glucosamine sulfate 1,000 mg 1,000 mg PO BID 08/08/24 04/11/25 capsule phentermine 37.5 mg capsule 37.5 mg PO DAILY 08/08/24 04/11/25 methotrexate sodium 2.5 mg tablet 2.5 mg PO DAILY 10/23/24 04/11/25 tirzepatide (weight loss) 2.5 10 mg SUBCUT 01/08/25 04/11/25 mg/0.5 mL subcutaneous pen injector (Zepbound) Previous Rx's ?Medication ?Instructions ?Recorded acetazolamide 250 mg tablet 250 mg PO BID #180 tabs 11/10/21 nicotine (polacrilex) 4 mg buccal 4 mg mucous membrane Q4H PRN 11/10/21 lozenge Nicotine Cravings #90 ea nicotine 21 mg/24 hr daily 1 patch transdermal DAILY #30 ea 11/10/21 transdermal patch estradiol 10 mcg vaginal insert 10 mcg vaginal DAILY 2 weeks #8 11/16/23 (Imvexxy Maintenance Pack) inserts ospemifene 60 mg tablet (Osphena) 60 mg PO DAILY #30 tabs 11/16/23 diazepam 5 mg tablet (Valium) 5 mg PO ONCE PRN anxiety #1 tab 03/19/25 methocarbamol 750 mg tablet 1,500 mg (2 x 750 mg) PO BID PRN 04/11/25 spasms #60 tabs topiramate 25 mg tablet (Topamax) 25 mg PO BID PRN nerve pain #60 04/11/25 tabs ondansetron 4 mg disintegrating 4 mg PO Q8H PRN nausea and 06/15/25 tablet vomiting 4 days #14 tabs Allergies Allergy/AdvReac Type Severity Reaction Status Date / Time Penicillins Allergy ALGY-Anaphy Verified 04/11/25 13:31 laxis Review of Systems General: Reports: 10 or more systems reviewed and unremarkable except in HPI and below Const: Denies: fever(s), change in weight or fatigue Eyes: Denies: change in vision, blurry vision, blind spots, photophobia, eye discomfort (transient, yesterday) or seeing flashes ENMT: Denies: odynophagia, hoarseness, change in hearing, tinnitus or sinus pain Card: Denies: chest pain, palpitations or syncope Resp: Denies: dyspnea, non-productive cough, wheezing or hemoptysis GI: Denies: abdominal pain, nausea, heartburn, diarrhea, constipation or hematochezia : Denies: urinary frequency or urinary incontinence Musc: Reports: neck pain Skin/Breast: Denies: rash, new lesions or breast mass Neuro: Reports: lack of coordination, dizziness and vertigo; Denies: headache(s) (transient posterior left), numbness in extremities, weakness in extremities, sensory changes, difficulty walking, frequent falls, confusion, Slurred speech present, difficulty communicating thoughts, seizure-like activity, involuntary movements or other (Sleep Apnea) Psych: Denies: depression, irritability, memory loss or difficulty concentrating Endo: Denies: polyuria, polydipsia, excessive sweating or change in body appearance Goldy/Lymph: Denies: easy bruising, easy bleeding or enlarged lymph nodes PFSH ED PFSH: Medical History (Updated 06/15/25 @ 15:44 by RACHELL Viramontes) Psoriasis Sciatica GERD (gastroesophageal reflux disease) Denisha's thyroiditis Rosacea Smoker Cervical intraepithelial neoplasia (DANNY) Optic disc drusen Surgical History History of hysterectomy with oophorectomy Family History Father Diabetes Heart disease Other Hypertension Denies family history of Colon cancer Ovarian cancer Prostate cancer Brain cancer Hypercholesteremia Uterine cancer Thyroid disease Stroke Social History Smoking and tobacco/nicotine status: current every day tobacco/nicotine user Physical Exam Const: COMMON NORMALS: no acute distress, average body habitus, patient oriented x3, no limitations, healthy appearing, alert and well nourished EXAM LIMITATIONS: no altered mental status, no behavioral limitations and no language barrier HENMT: COMMON NORMALS: normocephalic, atraumatic, hearing grossly normal bilaterally and TM's normal bilaterally HEAD & SCALP: normocephalic and atraumatic TYMPANIC MEMBRANE: TM's normal bilaterally Neck/C-Spine: COMMON NORMALS: full ROM, no lymphadenopathy, supple and no meningeal signs Lymph: LYMPHATIC: no lymphadenopathy noted Chest: COMMONS NORMALS: normal inspection of the chest and normal palpation of entire chest wall Resp: COMMON NORMALS: normal respiratory effort, No retractions and clear to auscultation bilaterally AUSCULTATION: clear to auscultation bilaterally Cardio: COMMON NORMALS: regular rate and regular rhythm RATE: regular rate RHYTHM: regular rhythm GI: COMMON NORMALS: Normal to inspection, nondistended, normoactive bowel sounds present, Soft to palpation, non-tender and No hepatosplenomegaly present PALPATION: Yes Soft to palpation and Yes No hepatosplenomegaly present : COMMON NORMALS: Yes no CVA tenderness BLADDER/KIDNEY EXAM: Yes no CVA tenderness Back/Pelvis: COMMON NORMALS: no CVA tenderness and thoracic and lumbar spine normal to inspection Neuro: COMMON NORMALS: patient oriented x3 SENSORIUM/ORIENTATION: Yes alert MENINGEAL SIGNS: Yes no meningeal signs Psych: COMMON NORMALS: mental status grossly normal, Normal thought process present, cooperative, normal affect and speech normal SPEECH: Yes normal speech THOUGHT PROCESS: Normal thought process present Course Reevaluation(s): Reevaluation #1: 1611: Patient was doing better, but to grab toilet paper, became lightheaded and dizzy, nauseous. No emesis. Will repeat Zofran. She has approximately 50% of her fluid bolus in. Reevaluation #2: 1630: Ongoing nausea and vomiting, Compazine, Benadryl ordered, and CT of her head. Reevaluation #3: Finally improved somewhat. Vital Signs: Vital signs: Vital Signs Temperature 97.7 F 06/15/25 15:14 Pulse Rate 61 06/15/25 18:30 Respiratory Rate 16 06/15/25 18:30 Blood Pressure 119/76 06/15/25 18:30 Pulse Oximetry 97 06/15/25 18:30 Oxygen Delivery Me thod Room Air 06/15/25 17:34 MDM - Dizziness Medical Decision Making Upon standing patient by myself after the 3-4-minute wait, her blood pressure was 98/77, with heart rate of 105. This is a change, orthostasis. She did have dizziness, for the first little bit while waiting, which resolved. I was standing by as well as tech for safety. There was no concern of fall. Feedback given to patient. Suspect the acetazolamide is a factor. This is not a medication you can stop with concern of pseudotumor cerebri (which is what I suspect is her previous diagnosis, however this is not on the chart.) patient will have to compensate by appropriate fluid intake and caution on sedation medications. She will be given a 1 L IV fluid bolus, encouraged to drink since her nausea is resolving after the Zofran 4 mg, and reevaluated. Patient has not used her acetazolamide since , 2 days ago. She will need to be placed back on this medication, and compensate with p.o. intake. Patient also has new findings: Incomplete left bundle branch block. No ST segment elevation. No chest pain. She will be sent to cardiology for new bundle branch block evaluation. Repeat blood pressure is 112/78, consistent without being orthostatic. Heart rate was 68. After 2 L IV fluid she is feeling better, and she is no longer orthostatic. She had mild symptoms for which she was given Ativan. I do suspect a component of BPV, as well as a red wang with her pseudotumor cerebri. Encourage patient to continue her medications, clear liquid diet, and return to ED for further issue with consideration of MRI/observation. Medical Records I reviewed the patient's medical records. Lab Data I reviewed the patient's lab results. 06/15/25 15:35 06/15/25 15:35 Radiology Impressions KUB X-Ray 06/15/25 16:15 IMPRESSION: Suggestion of some wall thickening of the fundus and body of the stomach and some prominence of the folds. This may be related to underdistention. If clinically indicated follow-up evaluation with upper GI exam or endoscopy. Unremarkable colon and small bowel. Head CT 06/15/25 16:17 IMPRESSION: No acute intracranial abnormality. Laboratory Results WBC 9.35 10^3/uL (3.29-11.43) 06/15/25 15:35 RBC 4.66 10^6/uL (3.85-5.65) 06/15/25 15:35 Hgb 14.40 g/dL (11.27-16.99) 06/15/25 15:35 Hct 44.4 % (36-47) 06/15/25 15:35 MCV 95.3 fl (85-98) 06/15/25 15:35 MCH 30.9 pg (27-33) 06/15/25 15:35 MCHC 32.4 g/dL (30-55) 06/15/25 15:35 RDW 13.5 % (12.1-15.1) 06/15/25 15:35 Plt Count 284 10^3/cmm (157-399) 06/15/25 15:35 MPV 9.6 fL (7.4-10.4) 06/15/25 15:35 Neut % (Auto) 78.5 % 06/15/25 15:35 Lymph % (Auto) 16.9 % 06/15/25 15:35 [place] % (Auto) 3.6 % 06/15/25 15:35 Eos % (Auto) 0.5 % 06/15/25 15:35 Baso % (Auto) 0.2 % 06/15/25 15:35 Neut # (Auto) 7.33 10^3/uL (1.8-7.7) 06/15/25 15:35 Lymph # (Auto) 1.6 10^3/uL (0.8-4.8) 06/15/25 15:35 [place] # (Auto) 0.3 10^3/uL (0.2-0.9) 06/15/25 15:35 Eos # (Auto) 0.1 10^3/uL (0.0-0.8) 06/15/25 15:35 Baso # (Auto) 0.0 10^3/uL (0.0-0.1) 06/15/25 15:35 Nucleated RBC % (auto) 0 % 06/15/25 15:35 Nucleated RBCs # 0.0 /100WBC 06/15/25 15:35 Sodium 137 mmol/L (136-145) 06/15/25 15:35 Potassium 4.2 mmol/L (3.5-5.1) 06/15/25 15:35 Chloride 104 mmol/L (98-107) 06/15/25 15:35 Carbon Dioxide 23 mmol/L (22-29) 06/15/25 15:35 Anion Gap 14.2 (5-19) 06/15/25 15:35 BUN 17 mg/dL (6-20) 06/15/25 15:35 Creatinine 0.6 mg/dL (0.5-0.9) 06/15/25 15:35 GFR Calculation 105.4 mL/min (90-130) 06/15/25 15:35 Glucose 104 mg/dL (65-115) 06/15/25 15:35 Calculated Osmolality 286 mOsm/kg (285-295) 06/15/25 15:35 Calcium 9.6 mg/dL (8.5-10.5) 06/15/25 15:35 Total Bilirubin 0.3 mg/dL (0.15-1.2) 06/15/25 15:35 AST 16 U/L (0-32) 06/15/25 15:35 ALT 12 U/L (0-33) 06/15/25 15:35 Alkaline Phosphatase 82 U/L (35-105) 06/15/25 15:35 Troponin T Baseline 8 ng/L (0-10) 06/15/25 15:35 Troponin T 120 Minute 6.87 ng/L (0-10) 06/15/25 17:26 Delta Troponin T -1.13 ABS# (0-10) L 06/15/25 17:26 Total Protein 6.5 g/dL (6.6-8.7) L 06/15/25 15:35 Albumin 4.5 g/dL (3.5-5.2) 06/15/25 15:35 Globulin 2.0 g/dL (1.3-4.6) 06/15/25 15:35 Lipase 38 U/L (13-60) 06/15/25 15:35 Urine Color Yellow (Yellow) 06/15/25 16:08 Urine Appearance Cloudy (CLEAR) A 06/15/25 16:08 Urine pH 5.0 (5-7) 06/15/25 16:08 Ur Specific [place] 1.026 (1.005-1.030) 06/15/25 16:08 Urine Protein Trace (Negative) A 06/15/25 16:08 Urine Glucose (UA) Negative (Normal) 06/15/25 16:08 Urine Ketones Trace (Negative) 06/15/25 16:08 Urine Blood Negative (Negative) 06/15/25 16:08 Urine Nitrate Negative (Negative) 06/15/25 16:08 Urine Bilirubin Negative (Negative) 06/15/25 16:08 Urine Urobilinogen 0.2 mg/dL (Negative) 06/15/25 16:08 Ur Leukocyte Esterase 1+ (Negative) A 06/15/25 16:08 Urine RBC 0-2 /hpf (0-2) 06/15/25 16:08 Urine WBC 6-10 /hpf (0-5) 06/15/25 16:08 Ur Squamous Epith Cells 6-10 /hpf (0-5) 06/15/25 16:08 Amorphous Sediment Not Reportable 06/15/25 16:08 Urine Bacteria 1+ /hpf (NONE) H 06/15/25 16:08 Hyaline Casts 3.71 /lpf 06/15/25 16:08 No radiology studies performed this visit ED provider radiology interpretation(s): No acute findings on KUB CT of head: No notable acute findings on my view EKG Data EKG 1: Interpretation: New incomplete left bundle branch block, QTc 455, rate 64 EKG 2: Interpretation: Incomplete left bundle branch block. No change from previous. EKG 3: Interpretation: Incomplete left bundle branch block, rate 60 Discharge Plan Discharge Patient Disposition: Home Clinical Impression: Orthostasis, Incomplete left bundle branch block Condition: Stable Prescriptions: New ondansetron 4 mg tablet,disintegrating 4 mg PO Q8H PRN (Reason: nausea and vomiting) 4 Days Qty: 14 0RF No Action phentermine 37.5 mg capsule 37.5 mg PO DAILY clobetasol 0.05 % solution 1 applic topical DAILY glucosamine sulfate 1,000 mg capsule 1,000 mg PO BID Rx Instructions: administer with meals Zepbound 2.5 mg/0.5 mL pen injector 10 mg SUBCUT phentermine 18.75 mg capsule 18.75 mg PO DAILY Rx Instructions: must administer 30 minutes before or 1-2 hours after breakfast Osphena 60 mg tablet 60 mg PO DAILY Qty: 30 3RF Rx Instructions: must administer with food, preferably a high-fat meal Imvexxy Maintenance Pack 10 mcg insert 10 mcg vaginal DAILY 14 Days Qty: 8 6RF Rx Instructions: one vaginally daily x two weeks, then one vaginally two times per week methotrexate sodium 2.5 mg tablet 2.5 mg PO DAILY methocarbamol 750 mg tablet 1,500 mg PO BID PRN (Reason: spasms) Qty: 60 5RF topiramate [Topamax] 25 mg tablet 25 mg PO BID PRN (Reason: nerve pain) Qty: 60 5RF diazepam [Valium] 5 mg tablet 5 mg PO ONCE PRN (Reason: anxiety) Qty: 1 0RF Rx Instructions: Take prior to procedure at pain management. atorvastatin 40 mg Tablet 40 mg PO QPM omeprazole 40 mg Capsule,Delayed Release(Dr/Ec) 40 mg PO DAILY Premarin 0.625 mg/gram Cream 0.625 mg VAGINAL EVERY OTHER DAY Rx Instructions: off 5 days; repeat cycle montelukast 10 mg Tablet 10 mg PO QPM loratadine 10 mg Tablet 10 mg PO DAILY Hair,Skin and Nails 5,000 mcg PO DAILY Hoagland 3 540 mg PO DAILY Vitamin D3 50 mcg (2,000 unit) Capsule 50 mcg PO DAILY nicotine 21 mg/24 hr Patch 24 Hour 1 patch transdermal DAILY Qty: 30 0RF nicotine (polacrilex) 4 mg Lozenge 4 mg mucous membrane Q4H PRN (Reason: Nicotine Cravings) Qty: 90 3RF acetazolamide 250 mg tablet 250 mg PO BID Qty: 180 0RF fluoxetine 20 mg tablet 20 mg PO TID Discharge Orders: Discharge ED (Routine); Ordered 06/15/25 Ordered By: Stephanie Davison Referrals: Yaritza Alicea MD [Primary Care Provider, Family Practice] Josafat Oviedo MD [Physician, Cardiology] - 1 week Discharge Diet: Clear Liquid Discharge Activity: Resume usual activity and Limit activity as instructed Patient Instructions: Patient Portal & Luis Manuel Instructions, Benign Paroxysmal Positional Vertigo (ED) Activity Restrictions/Additional Instructions: - For home: Zofran 4 mg, take every 8 hours as needed for nausea. Side effects include constipation. Ativan 1 mg, take one half every 8-12 hours as needed for dizziness. - Call your doctor on Tuesday for follow-up next week. - Take your medication at home as prescribed as we discussed. Please take your acetazolamide tonight. - Clear liquid diet only until your symptoms resolve then advance to full liquid, then bland diet. - For worsening symptoms: Return to ED, fever greater than 100.4, blurry vision, refractory nausea and vomiting. Thank you for choosing [facility] for your healthcare needs today. You have been screened and evaluated and felt safe for discharge. Health conditions do change or evolve sometimes and as such it is important that you follow up with your Primary Doctor to be re checked, 3-5 days is a general good time frame for follow up. You are always welcome to return to the ED for re assessment if your symptoms are worsening or you have new concerns Print Language: Beninese Coding Level of Care Code ED Mortuary Operations Manager for Aamir Cristina
[2025-06-15 15:43] LABS: Hematocrit 44.4 % (36-47); Hemoglobin 14.40 g/dL (11.27-16.99); Mean Corpuscular HGB Conc 32.4 g/dL (30-55); Mean Corpuscular Hemoglobin 30.9 pg (27-33); Mean Corpuscular Volume 95.3 fl (85-98); Nucleated Red Blood Cells % 0 %; Platelet Count 284 10^3/cmm (157-399); Red Blood Count 4.66 10^6/uL (3.85-5.65); White Blood Count 9.35 10^3/uL (3.29-11.43)
[2025-06-15 16:06] LABS: Alanine Aminotransferase 12 U/L (0-33); Albumin Level 4.5 g/dL (3.5-5.2); Alkaline Phosphatase 82 U/L (35-105); Anion Gap 14.2 (5-19); Aspartate Amino Transferase 16 U/L (0-32); Blood Urea Nitrogen 17 mg/dL (6-20); Calcium 9.6 mg/dL (8.5-10.5); Carbon Dioxide 23 mmol/L (22-29); Chloride 104 mmol/L (98-107); Globulin 2.0 g/dL (1.3-4.6); Glucose 104 mg/dL (65-115); Lipase 38 U/L (13-60); Osmolality Calculated 286 mOsm/kg (285-295); Potassium 4.2 mmol/L (3.5-5.1); Sodium 137 mmol/L (136-145); Total Protein 6.5 g/dL (6.6-8.7)
[2025-06-15 16:07] LABS: Troponin(5th) Baseline 8 ng/L (0-10)
--- NOTE | 2025-06-15 16:15 | XRR_ITS ---
PROCEDURE INFORMATION: Exam: XR Abdomen Exam date and time: 06/15/2025 4:17 PM Age: 50 years old Clinical indication: Nausea and vomiting; Prior surgery; Surgery date: 6+ months; Surgery type: Hyst; Additional info: N/v TECHNIQUE: Imaging protocol: Radiologic exam of the abdomen. Views: Frontal supine view of the abdomen. 1 View. COMPARISON: MR hip LT wo con* [id number] 09/28/2024 3:35 PM FINDINGS: Gastrointestinal tract: Suggestion of some wall thickening and prominent folds fundus and body of the stomach possibly related to underdistention. Small bowel and colon unremarkable without distension or air-fluid levels. Psoas outlines intact. Probable Velia's lobe of the liver. Bones/joints: [id number] degenerative changes lower lumbar spine. XR/XR KUB portable [id number] IMPRESSION: Suggestion of some wall thickening of the fundus and body of the stomach and some prominence of the folds. This may be related to underdistention. If clinically indicated follow-up evaluation with upper GI exam or endoscopy. Unremarkable colon and small bowel.
[2025-06-15] MEDS: ondansetron 2 mg/ML SDV 2 mL 4 MG IVP (16:17)
--- NOTE | 2025-06-15 16:17 | CTR_ITS ---
PROCEDURE INFORMATION: Exam: CT Head Without Contrast Exam date and time: 06/15/2025 4:26 PM Age: 50 years old Clinical indication: Dizziness TECHNIQUE: Imaging protocol: Computed tomography of the head without contrast. Radiation optimization: All CT scans at this facility use at least one of these dose optimization techniques: automated exposure control; mA and/or kV adjustment per patient size (includes targeted exams where dose is matched to clinical indication); or iterative reconstruction. COMPARISON: MR head wo/w con [id number] 08/15/2024 3:38 PM RADIATION DOSE METRICS: Total DLP (mGy-cm): 1082.15 FINDINGS: Brain: Normal. No hemorrhage. Unremarkable white matter. Normal mcrae-white matter differentiation. No mass effect. Cerebral ventricles: No ventriculomegaly. Paranasal sinuses: Visualized sinuses are unremarkable. No fluid levels. Mastoid air cells: Visualized mastoid air cells are well aerated. Bones: Unremarkable. No acute fracture. Soft tissues: Unremarkable. CT/CT head wo con* [id number] IMPRESSION: No acute intracranial abnormality.
[2025-06-15 16:19] LABS: Glucose Urine UA Negative (Normal); Nitrate Urine Negative (Negative); Specific Gravity, Urine 1.026 (1.005-1.030)
[2025-06-15 16:21] VITALS: BP 104/60; PULSE 86; RESP 20; O2SAT 100
[2025-06-15 16:21] LABS: Add Urine Microscopic? YES
[2025-06-15] MEDS: diphenhydrAMINE 50 mg/mL SDV 1mL 25 MG IVP (17:06)
[2025-06-15 17:34] VITALS: BP 117/66; PULSE 62; RESP 16; O2SAT 98
--- NOTE | 2025-06-15 17:34 | ECG_ITS ---
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 Measurements Intervals [place] Rate: 60 P: 54 LA: 205 QRS: -14 QRSD: 149 T: 47 QT: 477 QTc: 480 Interpretive Statements SINUS RHYTHM WITH SINUS ARRHYTHMIA LEFT BUNDLE BRANCH BLOCK [120+ ms QRS DURATION, 80+ ms Q/S IN V1/V2, 85+ ms R IN I/aVL/V5/V6] Compared to ECG 06/15/2025 15:25:41 No significant changes Electronically Signed On 06-15-2025 17:35:32 COMMUNICATIONS EDITOR by Josafat Oviedo M.D. [email or web address]
[2025-06-15 17:47] LABS: Troponin 5 2HR 6.87 ng/L (0-10)
[2025-06-15 17:48] LABS: Troponin 5 2HR Delta -1.13 ABS# (0-10)
[2025-06-15] MEDS: LORazepam 2 mg/mL INJ 1 mL 0.5 MG IVP (18:20)
[2025-06-15 18:30] VITALS: BP 119/76; PULSE 61; RESP 16; O2SAT 97
[2025-06-15] MEDS: ondansetron hcl ODT 4 mg Tab PO ×3 (19:35→19:36)
[2025-06-15 19:50] VITALS: BP 94/57; PULSE 76; O2SAT 95
--- NOTE | 2025-06-15 19:52 | PC.NURSE ---
Sent patient home with ativan and zofran, with detailed instuctions on the two different strengths of ativan. Reiterated information to ensure patient understood.
--- NOTE | 2025-06-17 07:59 | DCPLANNER ---
messaged heart care for er f/u
== END 2025-06-15 19:53 | disposition home or self-care (01) ==
PROVIDERS: Emergency Provider Physician Assistant; PCP Family Medicine
DX: I95.1 Orthostatic hypotension (principal); I44.7 Left bundle-branch block, unspecified; Z72.0 Tobacco use
CPT/HCPCS: 36415; 70450; 74018; 80053; 81001; 83690; 84484; 85025; 93005; 96361; 96374; 96375; 99285; J0780; J1200; J2060; J2405; J7120; J9999; Q0162

== ENCOUNTER 2025-06-19 22:28 | Emergency (ER) | payer MEDICAID, SELFPAY ==
[2025-06-19 22:08] VITALS: BP 104/74; PULSE 83; RESP 18; TEMP 36.5; O2SAT 100; BMI 31.2
[2025-06-19 22:12] VITALS: BP 118/84; PULSE 89; O2SAT 98
--- OUTSIDE RECORDS SUMMARY | 2025-06-19 22:31 | XMS_ITS | Encounter Summary ---
Author Organization [facility] Address 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 Gender Identity Not on file Sexual Orientation Not on file documented as of this encounter Plan of Treatment Upcoming Encounters Date Type Department Care Team (Late st Contact Info) Description 07/22/2025 2:00 PM BILINGUAL CASE MANAGER Office Visit [facility] Family Medicine [place] [address] [address] Bertha Alicea MD [address] [address] 01/21/2026 2:00 PM CDT Office Visit [facility] Neurosurgery [address] [place] [address] Hao Damon MD [address] [place] [address] documented as of this encounter Visit Diagnoses Not on filedocumented in this encounter Care Teams Poultry Cutter Relationship Specialty Start Date End Date Bertha Alicea MD [address] [address] PCP - General Family Practice 09/19/23 documented as of this encounter
--- OUTSIDE RECORDS SUMMARY | 2025-06-19 22:31 | XMS_ITS | Encounter Summary ---
Author Organization [facility] Address [address] [place] [address] Care Team Providers Care Manager Grant Name Role Phone Unavailable Primary Care Provider Unavailabl e Encounter Details Date Type Department Care Team (Latest Contact Info) Description 07/19/2000 Outpatient Historical [facility] Medicine [place] 104 [facility] 60 [place] [address] Jason Vallecillo, NO ADDRESS ON FILE Unspecified otitis media (Primary Dx) Social History Tobacco Use Types Packs/Day Years Used Date Smoking Tobacco: Never Assessed Comments Unknown Sex and Gender Information Value Date Recorded Sex Assigned at Not on file 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
--- OUTSIDE RECORDS SUMMARY | 2025-06-19 22:31 | XMS_ITS | Encounter Summary ---
Author Organization [facility] Address [address] [place] [address] Care Team Providers Care Paid Search Analyst Name Role Phone Unavailable Primary Care Provider Unavailabl e Encounter Details Date Type Department Care Team (Latest Contact Info) Description 02/09/1999 Outpatient Historical [facility] [place] 104 [facility] 60 [place] [address] Sascha Recio MD [address] [address] Tobacco use disorder (Primary Dx); Benign alexis skin trunk Social History Tobacco Use Types Packs/Day Years Used Date Smoking Tobacco: Never Assessed Comments Unknown Sex and Gender Information Value Date Recorded Sex Assigned at Not on file 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
--- OUTSIDE RECORDS SUMMARY | 2025-06-19 22:31 | XMS_ITS | Encounter Summary ---
Author Organization [facility] Address [address] [place] [address] Care Team Providers Care Livestock Sales Representative Name Role Phone Unavailable Primary Care Provider Unavailabl e Encounter Details Date Type Department Care Team (Latest Contact Info) Description 03/13/1999 Outpatient Historical [facility] Medicine [place] 104 [facility] 60 [place] [address] Sascha Recio MD [address] [address] Urinary tract infection, site not specified (Primary Dx); Anal/rectal abscess Social History Tobacco Use Types Packs/Day Years Used Date Smoking Tobacco: Never Assessed Comments Unknown Sex and Gender Information Value Date Recorded Sex Assigned at Not on file 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
--- OUTSIDE RECORDS SUMMARY | 2025-06-19 22:31 | XMS_ITS | Encounter Summary ---
Author Organization [facility] Address [address] [place] [address] Care Team Providers Care Senior Ui Ux Designer Name Role Phone Unavailable Primary Care Provider Unavailabl e Encounter Details Date Type Department Care Team (Latest Contact Info) Description 04/29/1998 Outpatient Historical [facility] Medicine [place] [address] [phone] Riky Arango MD [address] [phone] Surgical convalescence (Primary Dx) Social History Tobacco Use Types Packs/Day Years Used Date Smoking Tobacco: Never Assessed Comments Unknown Sex and Gender Information Value Date Recorded Sex Assigned at Not on file 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
--- OUTSIDE RECORDS SUMMARY | 2025-06-19 22:31 | XMS_ITS | Clinical Summary ---
Author Organization [facility] Address [address] [facility] 60 [place] [address] Phone Care Team Providers Care Process Planner Name Role Phone Unavailable Primary Care Provider [...] Active sodium chloride (OCEAN) 0.65 % Aerosol, [place] Administer 2 Sprays in each nostril PRN for Allergies. Active Sierra Tar 2 % Ointment Apply to affected area daily. Active FLUoxetine (PROzac) 20 mg capsule Take 20 mg by mouth daily. 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
--- OUTSIDE RECORDS SUMMARY | 2025-06-19 22:31 | XMS_ITS | Encounter Summary ---
Author Organization [facility] Address [address] [place] [address] Care Team Providers Care Telephone Exchange Operator Name Role Phone Bertha Alicea MD Primary Care Provider [phone] Encounter Details Date Type Department Care Team (Late st Contact Info) Description 06/18/2025 Orders Only 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 Gender Identity Not on file Sexual Orientation Not on file documented as of this encounter Plan of Treatment Upcoming Encounters Date Type Department Care Team (Late st Contact Info) Description 07/22/2025 2:00 PM RESTAURANT ASSISTANT Office Visit [facility] Family Medicine [address] [phone] Bertha Alicea MD [address] [address] 01/21/2026 2:00 PM CDT Office Visit [facility] Neurosurgery [address] [place] [address] Hao Damon MD [address] [place] [address] documented as of this encounter Procedures Procedure Name Priority Date/Time Associated Diagnosis Comments COMPREHENSIVE METABOLIC PANEL Routine 06/15/2025 10:39 AM RESTAURANT ASSISTANT documented in this encounter Results * COMPREHENSIVE METABOLIC PANEL (06/15/2025 10:39 AM RESTAURANT ASSISTANT) Blood us Abstract Provider CHEMISTRY ORDERABLES Final Res ult documented in this encounter Visit Diagnoses Not on filedocumented in this encounter Care Teams Telephone Exchange Operator Relationship Specialty Start Date End Date Bertha Alicea MD 104 [address] [facility] 60 [place] [phone] PCP - General Family Practice 09/19/23 documented as of this encounter
--- OUTSIDE RECORDS SUMMARY | 2025-06-19 22:31 | XMS_ITS | Encounter Summary ---
Author Organization [facility] Address [address] [place] [address] Care Team Providers Care Liquefier Name Role Phone Unavailable Primary Care Provider Unavailabl e Encounter Details Date Type Department Care Team (Latest Contact Info) Description 04/22/1998 Outpatient Historical [facility] Medicine [place] [address] [phone] Riky Arango MD [address] [phone] Benign neoplasm of skin, site unspecified (Primary Dx) Social History Tobacco Use Types Packs/Day Years Used Date Smoking Tobacco: Never Assessed Comments Unknown Sex and Gender Information Value Date Recorded Sex Assigned at Not on file 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
--- OUTSIDE RECORDS SUMMARY | 2025-06-19 22:31 | XMS_ITS | Encounter Summary ---
Author Organization [facility] Address [address] [place] [address] Care Team Providers Care Massage Coordinator Name Role Phone Unavailable Primary Care Provider Unavailabl e Encounter Details Date Type Department Care Team (Latest Contact Info) Description 08/11/2000 Outpatient Historical [facility] Medicine [place] 104 [facility] 60 [place] [address] Sascha Recio MD [address] [address] Unspecified otitis media (Primary Dx); Urinary tract infection, site not specified Social History Tobacco Use Types Packs/Day Years Used Date Smoking Tobacco: Never Assessed Comments Unknown Sex and Gender Information Value Date Recorded Sex Assigned at Not on file 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
--- OUTSIDE RECORDS SUMMARY | 2025-06-19 22:32 | XMS_ITS | Clinical Summary ---
Author Organization [facility] Address [address] [facility] [address] 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 0 Active selenium sulfide (SELSUN) 2.5 % Lotion Apply to affected area daily. 0 Active loratadine (CLARITIN) 10 mg tablet Take 10 mg by mouth daily. 0 Active sodium chloride (OCEAN) 0.65 % Aerosol, [place] Administer 2 Sprays in each nostril PRN [...] mouth. Active fluticasone propionate (FLONASE) 50 mcg/spray [place], Suspension nasal inhaler Administer 1 [place] in each nostril daily. 5 10/29/19 Active [...] Take 10 mg by mouth daily. Active [id number] RROUS FUMARATE ORAL Take by mouth. Activ [...] Encounters Date Type Department Care Team Description 06/18/2025 External Device Data STL ABSTRACTION Provider, Abstract 06/18/2025 Orders Only [facility] [address] [place] [address] Provider, Abstract 06/04/2025 External Device Data ST[place] ABSTRACTION Provider, Abstract 05/22/2025 Patient Outreach [address] [address] [facility] External Device Data [place] ABSTRACTION Provider, Abstract 05/15/2025 External Device Data ST[place] ABSTRACTION Provider, Abstract 05/14/2025 External Device Data [place] ABSTRACTION Provider, Abstract 05/08/2025 External Device Data [place] ABSTRACTION Provider, Abstract 04/30/2025 External Device Data [place] ABSTRACTION Provider, Abstract 04/30/2025 External Device Data ST[place] ABSTRACTION Provider, Abstract 04/24/2025 Results Follow-Up [address] [address] Bertha Alicea MD VITAMIN D 25 HYDROXY, CBC WITH DIFFERENTIAL, COMPREHENSIVE METABOLIC PANEL, MAGNESIUM LEVEL 04/22/2025 2:00 PM CDT Office Visit [address] [address] Bertha Alicea MD Constipation, unspecified constipation type (Primary Dx); Screening mammogram, encounter for; Other fatigue; Prediabetes; Obesity (BMI 35.0-39.9 without comorbidity) 04/22/2025 Patient Outreach [address] [phone] [facility] 04/08/2025 Patient Outreach [address] [address] [facility] from Last 3 Months Family History Medical [...] on file Legal Sex Female 4:53 PM SCRAP BREAKER Gender Identity Not on file Sexual Orientation [...] st Contact Info) Description 07/22/2025 2:00 PM SCRAP BREAKER Office Visit [facility] Medicine [place] [address] [address] Bertha Alicea MD [address] [address] 01/21/2026 2:00 PM CDT Office Visit [facility] Neurosurgery [address] [place] [address] Hao Damon MD [address] [place] [phone] Health Maintenance Due Date Last Done Comments [...] COMPREHENSIVE METABOLIC PANEL Routine 06/15/2025 10:39 AM SCRAP BREAKER MAGNESIUM LEVEL Routine 04/22/2025 3:19 PM CDT [...] Recently Relevant to Health Maintenance Results * COMPREHENSIVE METABOLIC PANEL (06/15/2025 10:39 AM SCRAP BREAKER) Only the most recent of2 resultswithin the time period is included. Blood us Abstract Provider CHEMISTRY ORDERABLES Final Res ult * CBC WITH DIFFERENTIAL (04/22/2025 3:19 PM [...] [facility] Comment: Test Performed at: [place] [address] [facility] [place] [place] [address] Yolanda Rodarte MD Blood 04/22/2025 3:19 PM CDT 04/23/2025 3:55 AM CDT Bertha Alicea MD HEMATOLOGY ORDERABLES Final Result Performing Organization Address City/[facility]/ZIP Co de Phone Number [facility] [phone] [place] [address] * VITAMIN D 25 HYDROXY (04/22/2025 3:19 PM CDT) VITAMIN D, 25 OH, TOTAL 43 30 - 100 ng/mL [facility] Comment: Vitamin D Status 25-OH Vitamin D: Deficiency: <20 ng/mL Insufficiency: 20 - 29 ng/mL Optimal: > or = 30 ng/mL For 25-OH Vitamin D testing on patients on D2-supplementation and patients for whom quantitation of D2 and D3 fractions is required, the [facility](TM) 25-OH VIT D, (D2,D3), LC/MS/MS is recommended: order code [id number] (patients >2yrs). See Note 1 Note 1 For additional information, please refer to http://education.Nextance/faq/ZFT419 (This link is being provided for informational/ educational purposes only.) Test Performed at: [place] [address] [facility] [place] [address] Yolanda Rodarte MD Blood 04/22/2025 3:19 PM CDT 04/23/2025 3:55 AM CDT us Bertha Alicea MD CHEMISTRY ORDERABLES Final Result Performing Organization Address City/[facility]/ZIP Co de Phone Number [facility] [phone] [facility] [address] [place] [address] [place] [address] * MAGNESIUM LEVEL (04/22/2025 3:19 PM CDT) [facility] MAGNESIUM 1.9 1.5 - 2.5 mg/dL [facility] Comment: Test Performed at: [employer] [address] [facility] [place] [address] Yolanda Rodarte MD Blood 04/22/2025 3:19 PM CDT 04/23/2025 3:55 AM CDT Bertha Alicea MD CHEMISTRY ORDERABLES Final Result Performing Organization Address City/[facility]/ZIP Co de Phone Number [facility] [phone] [facility] [address] [place] [place] [address] * HEMOGLOBIN A1C (01/07/2025 4:13 PM CDT) [facility] HEMOGLOBIN A1C 5.5 <5.7 % [facility] Comment: For the purpose of screening for the presence of diabetes: <5.7% Consistent with the absence of diabetes 5.7-6.4% Consistent with increased risk for diabetes (prediabetes) > or =6.5% Consistent with diabetes This assay result is consistent with a decreased risk of diabetes. Currently, no consensus exists regarding use of hemoglobin A1c for diagnosis of diabetes in children. According to [place] Diabetes Association (ADA) guidelines, hemoglobin A1c <7.0% represents optimal control in non- diabetic patients. Different metrics may apply to specific patient populations. Standards of Medical Care in Diabetes(ADA). ESTIMATED AVERAGE GLUCOSE (MG/DL) 111 mg/dL [facility] ESTIMATED AVERAGE GLUCOSE (MMOL/L) 6.2 mmol/L [facility] Comment: Test Performed at: [employer] [address] [facility] [place] [address] Yolanda Rodarte MD Blood 01/07/2025 4:13 PM CDT 01/09/2025 2:44 AM CDT Bertha Alicea MD CHEMISTRY ORDERABLES Final Result [facility] [phone] [facility] [address] [place] [address] * COLON CANCER SCREEN, STOOL DNA (10/14/2023 5:32 PM CDT) COLOGUARD RESULT Negative Negative [facility] Comment: NEGATIVE TEST RESULT. A negative Cologuard [...] Osorio et al, N Engl J Med 2014;370(14):7481-2029) The normal value (reference range) for this assay is negative. COLOGUARD RE-SCREENING RECOMMENDATION: Periodic colorectal cancer screening is an important part of preventive healthcare for asymptomatic individuals at average risk for colorectal cancer. Following a negative Cologuard result, the [place] Cancer Society and U.S. Multi-Society Task Force screening guidelines recommend a Cologuard re-screening interval of 3 years. References: [place] Cancer Society Guideline for Colorectal Cancer Screening: https://www.cancer.org/cancer/yyfvb-eouutr-ndzgqc/qpjjemrvh-hxlelnabl-jrxquvf/ac s-rec ommendations.html.; Boogie DK, Yousif CR, Alexia CornellK, Colorectal Cancer Screening: Recommendations for Physicians and Patients from the U.S. Multi-Society Task Force on Colorectal Cancer Screening , Am J Gastroenterology 2017; 112:5901-0818. TEST DESCRIPTION: Composite algorithmic analysis of stool [...] screened with both Cologuard and colonoscopy. (Kinga Gallo. et al, N Engl J Med 2014;370(14):1769-4524.) Cologuard may produce a false negative or false positive result (no colorectal cancer or precancerous polyp present at colonoscopy follow up). A negative Cologuard test result does not guarantee the absence of CRC or advanced adenoma (pre-cancer). The current Cologuard screening interval is every 3 years. ([place] Cancer Society and U.S. Multi-Society Task Force). Cologuard performance data in a 10,000 patient pivotal study using colonoscopy as the reference method can be accessed at the following location: www.Eqlim/results. Additional description of the Cologuard test process, warnings and precautions can be found at www.[employer]Merk[employer]d.com. Stool STOOL SPECIMEN / Unknown 10/14/2023 5:32 PM CDT 10/15/2023 4:00 PM CDT us Bertha Alicea MD BODY FLUIDS AND STOOLS [employer] CLIA # [id number] [address], [address] [place] [address] from Last 3 Months or Most Recently Relevant to Health Maintenance Insurance [address] [place] [address] [employer] [facility] [id number] [employer] Medicaid Care Teams Marketing Programs Manager Relationship Specialty Start Date End Date Bertha Alicea MD [address] [facility] 60 [place] [address] PCP - General Family Practice 09/19/23
[2025-06-19 22:35] LABS: Hematocrit 43.2 % (36-47); Hemoglobin 14.40 g/dL (11.27-16.99); Mean Corpuscular HGB Conc 33.3 g/dL (30-55); Mean Corpuscular Hemoglobin 31.5 pg (27-33); Mean Corpuscular Volume 94.5 fl (85-98); Nucleated Red Blood Cells % 0 %; Platelet Count 297 10^3/cmm (157-399); Red Blood Count 4.57 10^6/uL (3.85-5.65); White Blood Count 8.57 10^3/uL (3.29-11.43)
--- NOTE | 2025-06-19 22:36 | W.ED.DIZZY ---
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, chronic back pain, presenting to the emergency department with intermittent dizziness, was reportedly seen last week on Tuesday for similar symptoms, was found to have orthostatic hypotension with mixed vertiginous features, symptoms improved with treatment of headache and fluid resuscitation, discharged on short course of lorazepam, patient reports that after discharge her symptoms had fully resolved over the weekend, she reports that she felt generally fatigued on Tuesday and that since waking up this morning had been having intermittent episodes of room spinning dizziness that typically occur when she is lying down and turns her head to the side, also reports that while she was in the emergency department last week she had a similar episode of room spinning that occurred when she 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 She currently feels nondizzy while sitting in bed but does endorse a 4 out of 10 gradual onset intermittent headache throughout the day, she denies any vision or hearing loss, she does have a history of chronic tinnitus times months to years that has not changed recently, she denies any fevers, denies neck stiffness, denies falls or trauma, she denies chest pain or palpitations. Denies any weakness numbness or tingling to the face arms or legs or difficulty with ambulation. Related Data Home Medications ?Medication ?Instructions ?Recorded ?Confirmed Hair,Skin and Nails 5,000 mcg PO DAILY 11/09/21 04/11/25 [place] 3 540 mg PO DAILY 11/09/21 04/11/25 atorvastatin 40 mg tablet 40 mg PO QPM 11/09/21 04/11/25 cholecalciferol (vitamin D3) 50 50 mcg PO DAILY 11/09/21 04/11/25 mcg (2,000 unit) capsule (Vitamin D3) conjugated estrogens 0.625 mg/gram 0.625 mg vaginal EVERY OTHER DAY 11/09/21 04/11/25 vaginal cream (Premarin) loratadine 10 mg tablet 10 mg PO DAILY 11/09/21 04/11/25 montelukast 10 mg tablet 10 mg PO QPM 11/09/21 04/11/25 omeprazole 40 mg capsule,delayed 40 mg PO DAILY 11/09/21 04/11/25 release phentermine 18.75 mg capsule 18.75 mg PO DAILY 11/16/23 04/11/25 clobetasol 0.05 % scalp solution 1 applic topical DAILY 08/08/24 04/11/25 fluoxetine 20 mg tablet 20 mg PO TID 08/08/24 04/11/25 glucosamine sulfate 1,000 mg 1,000 mg PO BID 08/08/24 04/11/25 capsule phentermine 37.5 mg capsule 37.5 mg PO DAILY 08/08/24 04/11/25 methotrexate sodium 2.5 mg tablet 2.5 mg PO DAILY 10/23/24 04/11/25 tirzepatide (weight loss) 2.5 10 mg SUBCUT 01/08/25 04/11/25 mg/0.5 mL subcutaneous pen injector (Zepbound) Previous Rx's ?Medication ?Instructions ?Recorded acetazolamide 250 mg tablet 250 mg PO BID #180 tabs 11/10/21 nicotine (polacrilex) 4 mg buccal 4 mg mucous membrane Q4H PRN 11/10/21 lozenge Nicotine Cravings #90 ea nicotine 21 mg/24 hr daily 1 patch transdermal DAILY #30 ea 11/10/21 transdermal patch estradiol 10 mcg vaginal insert 10 mcg vaginal DAILY 2 weeks #8 11/16/23 (Imvexxy Maintenance Pack) inserts ospemifene 60 mg tablet (Osphena) 60 mg PO DAILY #30 tabs 11/16/23 diazepam 5 mg tablet (Valium) 5 mg PO ONCE PRN anxiety #1 tab 03/19/25 methocarbamol 750 mg tablet 1,500 mg (2 x 750 mg) PO BID PRN 04/11/25 spasms #60 tabs topiramate 25 mg tablet (Topamax) 25 mg PO BID PRN nerve pain #60 04/11/25 tabs meclizine 25 mg tablet 25 mg PO TID PRN dizziness #30 tabs 06/20/25 Allergies Allergy/AdvReac Type Severity Reaction Status Date / Time Penicillins Allergy ALGY-Anaphy Verified 04/11/25 13:31 laxis PFSH ED PFSH: Medical History Psoriasis Sciatica GERD (gastroesophageal reflux disease) Denisha's thyroiditis Rosacea Smoker Cervical intraepithelial neoplasia (DANNY) Optic disc drusen Surgical History History of hysterectomy with oophorectomy Family History Father Diabetes Heart disease Other Hypertension Denies family history of Colon cancer Ovarian cancer Prostate cancer Brain cancer Hypercholesteremia Uterine cancer Thyroid disease Stroke Social History Smoking and tobacco/nicotine status: current every day tobacco/nicotine user Physical Exam Narrative: EXAM NARRATIVE: Gen: A&Ox4, no acute distress, nontoxic appearing HEENT: Normocephalic, atraumatic, no scleral icterus, external ears normal, moist mucous membranes, pupils equal and reactive to light Neck: Supple, full range of motion, no observable masses Lungs: No Respiratory distress, Lungs clear to auscultation bilaterally no rales, rhonchi, wheezing CV: Regular rate and rhythm, no murmur, no pitting edema to lower extremities bilaterally Abdomen: Soft, nondistended, nontender to palpation MSK: No joint swelling, FROM all 4 extremities Skin: No rashes, petechiae, lesions. Normal color per patient. Neuro: Alert and oriented, no slurred speech, sensation and strength grossly intact all 4 extremities, extraocular muscles intact with visual gilliam intact on exam, there is reproduction of a room spinning type dizziness mild with inferior gaze with some mild horizontal nystagmus on inferior gaze, no rotary or vertical nystagmus, no pronator drift, no dysmetria on [id number]-[id number] or uqan-pi-ydki testing Psych: Appropriate for situation. Course Reevaluation(s): Reevaluation #1: Patient reporting headache and dizziness both resolved after treatment, patient ambulated in the ED by myself with normal gait, stable for discharge with initiation of meclizine, outpatient referral to PCP and ENT for further evaluation. Return precautions discussed to return to the ED if developing worsening dizziness not improved with meclizine, any other associated neurologic features such as weakness numbness or tingling or inability to walk, hearing or vision loss, or any other concerns. Time: 00:54 Vital Signs: Vital signs: Vital Signs Temperature 97.7 F 06/19/25 22:08 Pulse Rate 73 06/20/25 00:30 Respiratory Rate 18 06/19/25 22:08 Blood Pressure 103/53 06/20/25 00:30 Pulse Oximetry 98 06/20/25 00:30 Oxygen Delivery Me thod Room Air 06/20/25 00:00 MDM - Dizziness Medical Decision Making 50-year-old female history of IIH and chronic back pain presenting to the emergency department with intermittent positional room spinning type dizziness that recurred today after previously being seen for mixed features of dizziness on Tuesday that resolved with lorazepam and fluids, patient is only complaining of a mild to moderate headache while in the emergency department and is asymptomatic while stationary in bed but develops vertiginous dizziness while looking down, she does not have any other focal neurologic deficits on exam and has an NIH of 0, plan for resuscitation with IV fluids, trial of meclizine, labs, CT head from Tuesday reviewed and negative for acute intracranial abnormality, low concern for posterior CVA at this time or vascular dissection although considered, plan for reassessed patient after meclizine with gait testing in the emergency department for disposition. Anticipate discharge with meclizine if symptoms resolve with follow-up with PCP and referral to ENT. Lab Data Labs showing no leukocytosis or anemia, mildly elevated TSH with normal free T4, normal electrolytes, normal kidney function, no hyponatremia 06/19/25 22:17 06/20/25 00:28 Laboratory Results WBC 8.57 10^3/uL (3.29-11.43) 06/19/25 22:17 RBC 4.57 10^6/uL (3.85-5.65) 06/19/25 22:17 Hgb 14.40 g/dL (11.27-16.99) 06/19/25 22:17 Hct 43.2 % (36-47) 06/19/25 22:17 MCV 94.5 fl (85-98) 06/19/25 22:17 MCH 31.5 pg (27-33) 06/19/25 22:17 MCHC 33.3 g/dL (30-55) 06/19/25 22:17 RDW 13.5 % (12.1-15.1) 06/19/25 22:17 Plt Count 297 10^3/cmm (157-399) 06/19/25 22:17 MPV 9.9 fL (7.4-10.4) 06/19/25 22:17 Neut % (Auto) 57.6 % 06/19/25 22:17 Lymph % (Auto) 33.5 % 06/19/25 22:17 [place] % (Auto) 6.7 % 06/19/25 22:17 Eos % (Auto) 1.3 % 06/19/25 22:17 Baso % (Auto) 0.5 % 06/19/25 22:17 Neut # (Auto) 4.95 10^3/uL (1.8-7.7) 06/19/25 22:17 Lymph # (Auto) 2.9 10^3/uL (0.8-4.8) 06/19/25 22:17 [place] # (Auto) 0.6 10^3/uL (0.2-0.9) 06/19/25 22:17 Eos # (Auto) 0.1 10^3/uL (0.0-0.8) 06/19/25 22:17 Baso # (Auto) 0.0 10^3/uL (0.0-0.1) 06/19/25 22:17 Nucleated RBC % (auto) 0 % 06/19/25 22:17 Nucleated RBCs # 0.0 /100WBC 06/19/25 22:17 Sodium 140 mmol/L (136-145) 06/20/25 00:28 Potassium 3.5 mmol/L (3.5-5.1) 06/20/25 00:28 Chloride 105 mmol/L (98-107) 06/20/25 00:28 Carbon Dioxide 23 mmol/L (22-29) 06/20/25 00:28 Anion Gap 15.5 (5-19) 06/20/25 00:28 BUN 15 mg/dL (6-20) 06/20/25 00:28 Creatinine 0.7 mg/dL (0.5-0.9) 06/20/25 00:28 GFR Calculation 88.2 mL/min (90-130) L 06/20/25 00:28 Glucose 85 mg/dL (65-115) 06/20/25 00:28 Calculated Osmolality 290 mOsm/kg (285-295) 06/20/25 00:28 Calcium 8.6 mg/dL (8.5-10.5) 06/20/25 00:28 Magnesium 1.9 mg/dL (1.7-2.3) 06/20/25 00:28 TSH 4.84 uIU/mL (0.27-4.20) H 06/20/25 00:28 Free T4 1.10 ng/dL (0.82-1.77) 06/20/25 00:28 No radiology studies performed this visit Discharge Plan Discharge Patient Disposition: Home Clinical Impression: Benign paroxysmal positional vertigo Qualifiers: Laterality: unspecified laterality Qualified Code(s): H81.10 - Benign paroxysmal vertigo, unspecified ear Condition: Stable Prescriptions: New meclizine 25 mg tablet 25 mg PO TID PRN (Reason: dizziness) Qty: 30 0RF No Action phentermine 37.5 mg capsule 37.5 mg PO DAILY clobetasol 0.05 % solution 1 applic topical DAILY glucosamine sulfate 1,000 mg capsule 1,000 mg PO BID Rx Instructions: administer with meals Zepbound 2.5 mg/0.5 mL pen injector 10 mg SUBCUT phentermine 18.75 mg capsule 18.75 mg PO DAILY Rx Instructions: must administer 30 minutes before or 1-2 hours after breakfast Osphena 60 mg tablet 60 mg PO DAILY Qty: 30 3RF Rx Instructions: must administer with food, preferably a high-fat meal Imvexxy Maintenance Pack 10 mcg insert 10 mcg vaginal DAILY 14 Days Qty: 8 6RF Rx Instructions: one vaginally daily x two weeks, then one vaginally two times per week methotrexate sodium 2.5 mg tablet 2.5 mg PO DAILY methocarbamol 750 mg tablet 1,500 mg PO BID PRN (Reason: spasms) Qty: 60 5RF topiramate [Topamax] 25 mg tablet 25 mg PO BID PRN (Reason: nerve pain) Qty: 60 5RF diazepam [Valium] 5 mg tablet 5 mg PO ONCE PRN (Reason: anxiety) Qty: 1 0RF Rx Instructions: Take prior to procedure at pain management. atorvastatin 40 mg Tablet 40 mg PO QPM omeprazole 40 mg Capsule,Delayed Release(Dr/Ec) 40 mg PO DAILY Premarin 0.625 mg/gram Cream 0.625 mg VAGINAL EVERY OTHER DAY Rx Instructions: off 5 days; repeat cycle montelukast 10 mg Tablet 10 mg PO QPM loratadine 10 mg Tablet 10 mg PO DAILY Hair,Skin and Nails 5,000 mcg PO DAILY [place] 3 540 mg PO DAILY Vitamin D3 50 mcg (2,000 unit) Capsule 50 mcg PO DAILY nicotine 21 mg/24 hr Patch 24 Hour 1 patch transdermal DAILY Qty: 30 0RF nicotine (polacrilex) 4 mg Lozenge 4 mg mucous membrane Q4H PRN (Reason: Nicotine Cravings) Qty: 90 3RF acetazolamide 250 mg tablet 250 mg PO BID Qty: 180 0RF fluoxetine 20 mg tablet 20 mg PO TID Discharge Orders: Discharge ED (Routine); Ordered 06/20/25 Ordered By: William Sampson Referrals: Yaritza Alicea MD [Primary Care Provider, Family Practice] Patient Instructions: Patient Portal & Luis Manuel Instructions, Benign Paroxysmal Positional Vertigo (DC) Print Language: Sammarinese Coding Level of Care Code ED Electrical Engineering Professor for Aamir Cristina
[2025-06-19 22:42] VITALS: BP 109/68; PULSE 81; O2SAT 99
[2025-06-19 23:12] VITALS: BP 108/69; PULSE 81; O2SAT 99
[2025-06-19] MEDS: metoclopramide 5 mg/mL SDV 2 mL 10 MG IVP (23:30)
[2025-06-19 23:44] VITALS: BP 103/70; PULSE 85; O2SAT 94
[2025-06-20] VITALS: BP 103/67; PULSE 74; O2SAT 97
[2025-06-20 00:30] VITALS: BP 103/53; PULSE 73; O2SAT 98
[2025-06-20 01:04] LABS: Anion Gap 15.5 (5-19); Blood Urea Nitrogen 15 mg/dL (6-20); Calcium 8.6 mg/dL (8.5-10.5); Carbon Dioxide 23 mmol/L (22-29); Chloride 105 mmol/L (98-107); Free T4 Free Thyroxine 1.10 ng/dL (0.82-1.77); Glucose 85 mg/dL (65-115); Magnesium 1.9 mg/dL (1.7-2.3); Osmolality Calculated 290 mOsm/kg (285-295); Potassium 3.5 mmol/L (3.5-5.1); Sodium 140 mmol/L (136-145); Thyroid Stimulating Hormone 4.84 uIU/mL (0.27-4.20)
[2025-06-20 01:14] VITALS: BP 95/58; PULSE 72; O2SAT 96
--- NOTE | 2025-06-20 22:13 | DCPLANNER ---
Referral sent to ENT -
== END 2025-06-20 01:22 | disposition home or self-care (01) ==
PROVIDERS: Emergency Provider Student in an Organized Health Care Education/Training Program; PCP Family Medicine
DX: H81.10 Benign paroxysmal vertigo, unspecified ear (principal); Z72.0 Tobacco use
CPT/HCPCS: 36415; 80048; 83735; 84439; 84443; 85025; 96361; 96374; 96375; 99284; J1885; J2765; J7030; J8597

== ENCOUNTER 2025-07-05 07:20 | Outpatient (CLI) | payer MEDICAID, SELFPAY ==
[2025-07-05 07:34] VITALS: BMI 31.4
--- NOTE | 2025-07-05 07:39 | NMCV_ITS ---
NM peri perf SPECT r/s* [id number] Fani Serna Age: 50 Gender: F : 1975 Exam Date: 07/05/2025 08:26 Ordering Phys: Josafat Oviedo MD ([email or web address]) Technologist: HARRY Daley Exam Location: [facility] Indications: cp STRESS TEST Please see separate stress test report in [facility] for full findings IMAGE PROTOCOL Rest/Stress 1 Lexiscan Day Radiopharmaceutical Dose (mCi) Administration Site Administered by Rest: Tc-99m 10.4 IV Mulu Beaulieu, WELL DIGGER Sestamibi Stress:Tc-99m 32.7 IV Mulu Mcdanielgle, WELL DIGGER Sestamibi Rest: 05-Jul-2025 60 Discovery 630 Stress: 05-Jul-2025 30 Discovery 630 0.4mg Lexiscan. Images obtained in supine and prone position. SPECT RESULTS Technical Quality: Good Raw Data Analysis: Normal Image Corrections: No attenuation or motion correction applied Summed Stress Score: 9 Summed Rest Score: 6 Summed Difference Score: 3 PERFUSION FINDINGS Large area of fixed perfusion defect noted in basal to distal anterior and antral septal wall extending into the inferoseptal and inferoapical region surrounded by medium sized area of moderate reversibility suggestive of possible lesion in LAD territory however cannot rule out multivessel coronary artery disease. This study is positive for old myocardial infarction surrounded by medium sized area of moderate ischemia in LAD territory. In the absence of prone images cannot rule out breast attenuation artifact. FUNCTIONAL RESULTS (calculated via Gated SPECT) Stress Image LV EF (%): 70 Stress EDV (mL):105 TID: 0.86 Stress ESV (mL):31 FUNCTIONAL FINDINGS: Anterior wall hypokinesis IMPRESSIONS Large area of fixed perfusion defect noted in basal to distal anterior and antro septal wall extending into the inferoseptal and inferoapical region surrounded by medium sized area of moderate reversibility suggestive of possible lesion in LAD territory however cannot rule out multivessel coronary artery disease. This study is positive for old myocardial infarction surrounded by medium sized area of moderate ischemia in LAD territory. In the absence of prone images cannot rule out breast attenuation artifact. Saurabh Ingram MD (Electronically Signed) Final Date: 05 July 2025 11:01 S
--- NOTE | 2025-07-05 07:39 | ECG_ITS ---
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 The perfusion scan will be documented separately. DATA: Baseline heart rate was 77 beats per minute. Baseline blood pressure was 124/82 millimeters of mercury. Target heart rate was 169. Maximum heart rate achieved was 106. which was 62 % of the predicted target heart rate. Maximum blood pressure was 133/82 millimeters of mercury. The reason for ending the test was completion of the protocol. The patient did not experience any symptoms. ELECTROCARDIOGRAM: BASELINE: Sinus rhythm. Normal axis. Left bundle branch block, otherwise, no ST-T changes suggestive of ischemia noted. No arrhythmia noted. EXERCISE: After Lexiscan injection, no ST-T changes suggestive of ischemic noted. No arrhythmia noted. CONCLUSION: Please note due to baseline abnormality of the EKG specificity and sensitivity of the EKG portion of LexiScan MIBI stress test will be low 1. EKG not suggestive of ischemia 2. Lexiscan injection unremarkable. 3. Perfusion scan will be documented separately. Electronically Signed On 07-18-2025 18:11:25 MOLDER VACUUM by SANDY DUMAS [email or web address]
[2025-07-05 09:10] VITALS: BP 105/50; PULSE 82
== END 2025-07-05 07:21 | disposition home or self-care (01) ==
LOC: CDL 07:21
PROVIDERS: PCP Family Medicine; Visit Provider Internal Medicine Cardiovascular Disease
DX: R07.9 Chest pain, unspecified (principal); R93.1 Abnormal findings on diagnostic imaging of heart and coronary circulation; I25.2 Old myocardial infarction; I25.9 Chronic ischemic heart disease, unspecified
CPT/HCPCS: 36415; 78452; 93017; 96374; A9500; J2785